=== PATIENT | female | born 1995 | race American Indian/Alaskan Native ===

== ENCOUNTER 2017-04-12 07:53 | Emergency (ER) | payer SELFPAY ==
[2017-04-12 08:28] LABS: Basophils % (Auto) 0.5 % (0.0-1.8); Eosinophils % (Auto) 1.8 % (0.0-4.3); Hematocrit 33.1 % (30.3-42.9); Hemoglobin 10.6 gm/dl (10.1-14.3); Mean Corpuscular HGB Conc 32 % (30-34); Mean Corpuscular Volume 74 fl (79-97); Platelet Count 331 K/mm3 (140-440); Red Blood Count 4.45 M/mm3 (3.65-5.03); Red Cell Distribution Width 16.9 % (13.2-15.2); White Blood Count 7.5 K/mm3 (4.5-11.0)
[2017-04-12 08:34] LABS: Mean Corpuscular Hemoglobin 24 pg (28-32)
[2017-04-12 08:45] LABS: Anion Gap 18 mmol/L; BUN/Creatinine Ratio 17; Blood Urea Nitrogen 10 mg/dL (7-17); Calcium 9.1 mg/dL (8.4-10.2); Carbon Dioxide 23 mmol/L (22-30); Chloride 101.9 mmol/L (98-107); Glucose 108 mg/dL (65-100); Potassium 4.4 mmol/L (3.6-5.0); Sodium 138 mmol/L (137-145)
[2017-04-12] MEDS ORDERED: ZOFRAN IV ONE (14:03)
[2017-04-12] MEDS ORDERED: ASPIRIN PO ONE (14:03)
[2017-04-12] MEDS ORDERED: MORPHINE IV ONE (14:03)
[2017-04-12] MEDS ORDERED: NITRO-BID 2% TP ONE (14:03)
--- NOTE | 2017-04-12 14:06 | Emergency Department Report ---
HPI - General Chief Complaint: Chest Pain Time Seen by Provider: 04/12/17 13:43 - HPI HPI: Stubbs 21 The patient is a 21-year-old female presented with a chief complaint of chest pain. Patient states for approximately 1 week she has had intermittent substernal chest pain described as sharp and pressure-like in nature. The patient states when the pain comes on and lasts all day. Patient does admit to shortness of breath but denies nausea/vomiting with her pain. Patient is to occasional cough that is nonproductive. Patient does admit a pleurisy but denies any recent flights or long car trips. Patient denies any history of fever. Patient denies any other pain outside of her chest pain Location: Chest Duration: Intermittent one week Quality: Pressure/sharp Severity: 02/14 Modifying factors: [see above] Context: [see above] Mode of transportation: Unknown ED Past Medical Hx - Past Medical History Previous Medical History?: Yes Additional medical history: Bronchitis - Surgical History Past Surgical History?: No - Family History Family history: no significant - Social History Smoking Status: Current Some Day Smoker Substance Use Type: None (denies illicit drug use) - Medications Home Medications: Home Medications Medication Instructions Recorded Confirmed Last Taken Type No Known Home Medications [No 08/08/15 04/12/17 Unknown History Reported Home Medications] ED Review of Systems ROS: Stated complaint: CHEST PAIN Other details as noted in HPI Eyes: denies: eye pain ENT: denies: throat pain Respiratory: cough, shortness of breath Cardiovascular: chest pain Gastrointestinal: denies: abdominal pain Genitourinary: denies: dysuria Musculoskeletal: denies: back pain Neurological: denies: headache Physical Exam - Physical Exam Vital Signs: Vital Signs 04/12/17 08:08 Temperature 98.2 F Pulse Rate 92 H Respiratory 18 Rate Blood Pressure 133/76 O2 Sat by Pulse 99 Oximetry Physical Exam: GENERAL: The patient is well-developed well-nourished female sitting on stretcher not appearing to be in acute distress. [] HEENT: Normocephalic. Atraumatic. Extraocular motions are intact. Patient has moist mucous membranes. NECK: Supple. Trachea midline CHEST/LUNGS: Clear to auscultation. There is no respiratory distress noted. HEART/CARDIOVASCULAR: Regular. There is no tachycardia. There is no gallop rub or murmur. ABDOMEN: Abdomen is soft, nontender. Patient has normal bowel sounds. There is no abdominal distention. SKIN: There is no rash. There is no diaphoresis. NEURO: The patient is awake, alert, and oriented. The patient is cooperative. The patient has normal speech MUSCULOSKELETAL: There is no evidence of acute injury. ED Course Vital Signs 04/12/17 08:08 Temperature 98.2 F Pulse Rate 92 H Respiratory 18 Rate Blood Pressure 133/76 O2 Sat by Pulse 99 Oximetry ED Medical Decision Making - Lab Data Result diagrams: 04/12/17 08:13 04/12/17 08:13 Laboratory Tests 04/12/17 04/12/17 04/12/17 08:13 08:13 11:18 WBC 7.5 RBC 4.45 Hgb 10.6 Hct 33.1 MCV 74 L MCH 24 L MCHC 32 RDW 16.9 H Plt Count 331 Lymph % (Auto) 21.2 Webster % (Auto) 5.8 Eos % (Auto) 1.8 Baso % (Auto) 0.5 Lymph # 1.6 Webster # 0.4 Eos # 0.1 Baso # 0.0 Seg Neutrophils % 70.7 H Seg Neutrophils # 5.3 Sodium 138 Potassium 4.4 Chloride 101.9 Carbon Dioxide 23 Anion Gap 18 BUN 10 Creatinine 0.6 L Estimated GFR > 60 BUN/Creatinine Ratio 17 Glucose 108 H Calcium 9.1 Troponin T < 0.010 < 0.010 HCG, Qual 04/12/17 04/12/17 14:05 14:08 WBC RBC Hgb Hct MCV MCH MCHC RDW Plt Count Lymph % (Auto) Webster % (Auto) Eos % (Auto) Baso % (Auto) Lymph # Webster # Eos # Baso # Seg Neutrophils % Seg Neutrophils # Sodium Potassium Chloride Carbon Dioxide Anion Gap BUN Creatinine Estimated GFR BUN/Creatinine Ratio Glucose Calcium Troponin T < 0.010 HCG, Qual Negative - EKG Data -: EKG Interpreted by Me EKG shows normal: sinus rhythm Rate: normal - EKG Data When compared to previous EKG there are: previous EKG unavailable Interpretation: nonspecific ST-T wave sammy (T-wave inversions in leads 2, V2, V3) , other (Q waves in leads 2, 3, aVF, V4, V5, V6. S1 Q3 T3. ) - Radiology Data Radiology results: report reviewed (CT chest), image reviewed (CT chest) FINAL REPORT PROCEDURE: CT ANGIO CHEST TECHNIQUE: Computerized tomographic angiography of the chest was performed after the IV injection of iodinated nonionic contrast including image processing. The image data was postprocessed using 2-dimensional multiplanar reformatted (MPR) and 3-dimensional (MIP and/or volume rendered) techniques. HISTORY: chest pain COMPARISON: No prior studies are available for comparison. FINDINGS: Lungs are clear. No pneumothorax or pleural effusion is seen. No mediastinal lymphadenopathy is seen. Heart and thoracic aorta are normal in size. There is no evidence of aortic dissection. No pulmonary embolus is seen. A rib fracture is not seen. IMPRESSION: No abnormalities are seen. Transcribed By: WW Dictated By: SHAE DORMAN JR, MD Electronically Authenticated By: SHAE DORMAN JR, MD Signed Date/Time: 04/12/171241 DD/ 41 TD/TT: 04/12/171241 - Differential Diagnosis PE, ACS, GERD, pericarditis Critical care attestation.: If time is entered above; I have spent that time in minutes in the direct care of this critically ill patient, excluding procedure time. ED Disposition Clinical Impression: Chest pain, Abnormal Q waves on electrocardiogram, T wave inversion in EKG Disposition: -09 OP ADMIT IP TO THIS HOSP Is pt being admited?: Yes Does the pt Need Aspirin: Yes Condition: Fair Instructions: Chest Pain (ED) Referrals: PRIMARY CARE, [Primary Care Provider] - 3-5 Days Time of Disposition: 16:52 (hospitalist notified (Dr Hamilton))
--- NOTE | 2017-04-12 16:45 | Cat Scan Report ---
FINAL REPORT PROCEDURE: CT ANGIO CHEST TECHNIQUE: Computerized tomographic angiography of the chest was performed after the IV injection of iodinated nonionic contrast including image processing. The image data was postprocessed using 2-dimensional multiplanar reformatted (MPR) and 3-dimensional (MIP and/or volume rendered) techniques. HISTORY: chest pain COMPARISON: No prior studies are available for comparison. FINDINGS: Lungs are clear. No pneumothorax or pleural effusion is seen. No mediastinal lymphadenopathy is seen. Heart and thoracic aorta are normal in size. There is no evidence of aortic dissection. No pulmonary embolus is seen. A rib fracture is not seen. IMPRESSION: No abnormalities are seen.
--- NOTE | 2017-04-12 19:17 | History and Physical Report ---
History of Present Illness Chief complaint: chest pain History of present illness: 21 YO Female with bronchitis presents to ED for evaluation of chest pain. Patient states for approximately 1 week she has had intermittent substernal chest pain described as sharp and pressure-like in nature. The patient states when the pain comes on and lasts all day. Patient does admit to shortness of breath but denies nausea/vomiting with her pain. Patient is to occasional cough that is nonproductive. Patient does admit a pleurisy but denies any recent flights or long car trips. Patient denies any history of fever. Patient denies any other pain outside of her chest pain. Pt seen and evaluated in ED. Pt medically optimized and back to usual state of health. Cardiac workup negative, CT angio chest negative. Pt discharged home. Past History Past Medical History: other (bronchitis.) Past Surgical History: No surgical history, Other (reviewed) Social history: single. denies: smoking, alcohol abuse Family history: hypertension Medications and Allergies Allergies Allergy/AdvReac Type Severity Reaction Status Date / Time No Known Allergies Allergy Unverified 08/08/15 01:01 Home Medications Medication Instructions Recorded Confirmed Last Taken Type ALBUTEROL NEB's [Proventil 0.083% 2.5 mg IH TID PRN #1 box 04/12/17 Unknown Rx NEBS] Ipratropium [Atrovent NEB] 0.5 mg IH Q8HRT #1 box 04/12/17 Unknown Rx Nebulizer and Compressor [[place] 1 each MC BID #1 each 04/12/17 Unknown Rx Choice Nebulizer] Pantoprazole [Protonix] 40 mg PO QDAY #30 tablet 04/12/17 Unknown Rx Review of Systems Constitutional: no weight loss, no weight gain, no fever, no chills Ears, nose, mouth and throat: no ear pain, no ear discharge, no tinnitis, no decreased hearing Breasts: no change in shape, no swelling, no mass Cardiovascular: chest pain, no orthopnea, no palpitations, no rapid/irregular heart beat, no edema, no syncope Gastrointestinal: no abdominal pain, no nausea, no vomiting, no diarrhea, no constipation Genitourinary Female: no pelvic pain, no flank pain, no menorrhagia, no dysuria Rectal: no pain, no incontinence, no bleeding Musculoskeletal: no neck stiffness, no neck pain, no shooting arm pain, no arm numbness/tingling, no low back pain Integumentary: no rash, no pruritis, no redness, no sores Neurological: no transient paralysis, no paralysis, no weakness, no parathesias , no numbness, no tingling, no seizures Psychiatric: no memory loss, no change in sleep habits, no sleep disturbances, no insomnia, no hypersomnia, no change in appetite Endocrine: no cold intolerance, no heat intolerance, no polyphagia, no excessive thirst, no polydipsia Hematologic/Lymphatic: no easy bruising, no easy bleeding Allergic/Immunologic: no urticaria, no allergic rhinitis, no wheezing Exam - Constitutional Vitals: Temp Pulse Resp BP Pulse Ox 98.2 F 89 18 112/81 100 04/12/17 08:08 04/12/17 15:14 04/12/17 15:14 04/12/17 15:14 04/12/17 14:45 General appearance: Present: obese - EENT Eyes: Present: PERRL ENT: hearing intact, clear oral mucosa - Neck Neck: Present: supple, normal ROM - Respiratory Respiratory effort: normal Respiratory: bilateral: CTA - Cardiovascular Heart Sounds: Present: S1 & S2. Absent: rub, click - Extremities Extremities: pulses symmetrical, No edema Peripheral Pulses: within normal limits - Abdominal General gastrointestinal: Present: soft, non-tender, non-distended, normal bowel sounds Female genitourinary: Present: normal - Integumentary Integumentary: Present: clear, warm, dry - Musculoskeletal Musculoskeletal: gait normal, strength equal bilaterally - Psychiatric Psychiatric: appropriate mood/affect, intact judgment & insight - Neurologic Neurologic: CNII-XII intact, moves all extremities Results - Labs CBC & Chem 7: 04/12/17 08:13 04/12/17 08:13 Labs: Abnormal lab results 04/12/17 04/12/17 04/12/17 Range/Units 08:13 08:13 17:38 MCV 74 L (79-97) fl MCH 24 L (28-32) pg RDW 16.9 H (13.2-15.2) % Seg Neutrophils % 70.7 H (40.0-70.0) % D-Dimer 1070.53 H (0-234) ng/mlDDU Creatinine 0.6 L (0.7-1.2) mg/dL Glucose 108 H (65-100) mg/dL Assessment and Plan - Patient Problems (1) Atypical chest pain Status: Acute Plan to address problem: Cardiac enzymes, ekg, telemetry, unremarkable for acute ischamia, D//c home f/u pcp 1wk. (2) GERD (gastroesophageal reflux disease) Status: Acute Plan to address problem: PPI therapy
[2017-04-12 19:43] VITALS: BP 112/86
[2017-04-12 19:45] LABS: Urine Drugs of Abuse Note Disclamer
== END 2017-04-12 20:45 | disposition admitted as inpatient to this hospital (09) ==
LOC: ED 07:53
DX: R07.89 Other chest pain (principal); R94.31 Abnormal electrocardiogram [ECG] [EKG]; F17.200 Nicotine dependence, unspecified, uncomplicated
CPT/HCPCS: 36415; 71275; 80048; 80307; 83735; 84484; 84703; 85025; 85379; 93005; 93010; 96374; 96375; 99284; J2270; J2405; Q9967

== ENCOUNTER 2017-10-04 16:55 | Emergency (ER) | payer SELFPAY ==
[2017-10-04 17:12] VITALS: BP 155/76
[2017-10-04 18:05] LABS: Color,Urine Yellow (Yellow)
[2017-10-04 18:06] LABS: Bilirubin,Urine NEG (Negative); Blood,Urine NEG (Negative); HCG Qualitative,Urine Negative (Negative); Mucus,Urine 3+ /HPF; Protein,Urine <15 mg/dL mg/dL (Negative); Urobilinogen,Urine < 2.0 mg/dL (<2.0)
[2017-10-04] MEDS ORDERED: NORCO 5/325 PO ONE (22:20)
--- NOTE | 2017-10-04 22:28 | Emergency Department Report ---
HPI - General Chief Complaint: Back Pain/Injury Time Seen by Provider: 10/04/17 22:06 - HPI HPI: 22-year-old female presents to the emergency department with a one-week history of lower midsternal chest pain and low back pain. Both of these areas started atraumatically. The chest pain is a soreness that she says worsens with palpation and certain movements of the upper torso. Regarding the low back pain, she denies any numbness, paresthesias, problems with bowel or bladder, vaginal discharge or bleeding, fever. She tried some anti- inflammatories such as ibuprofen for her symptoms without any relief. She has not had a primary care physician. She has a past medical history of bronchitis. She is an occasional tobacco smoker denies any illicit drug use or alcohol abuse. No recent travel or sick contacts at home. ED Past Medical Hx - Past Medical History Hx Asthma: Yes Additional medical history: Bronchitis - Surgical History Past Surgical History?: No - Social History Smoking Status: Current Every Day Smoker Substance Use Type: None - Medications Home Medications: Home Medications Medication Instructions Recorded Confirmed Last Taken Type ALBUTEROL NEB's [Proventil 0.083% 2.5 mg IH TID PRN #1 box 04/12/17 Unknown Rx NEBS] Ipratropium [Atrovent NEB] 0.5 mg IH Q8HRT #1 box 04/12/17 Unknown Rx Nebulizer and Compressor [[place] 1 each MC BID #1 each 04/12/17 Unknown Rx Choice Nebulizer] Pantoprazole [Protonix] 40 mg PO QDAY #30 tablet 04/12/17 Unknown Rx HYDROcodone/ACETAMINOPHEN [Ariton 1 each PO Q8H PRN #8 tablet 10/04/17 Unknown Rx 5-325 Tablet] ED Review of Systems ROS: Stated complaint: SOB, LOWERBACK PAIN Other details as noted in HPI Comment: All other systems reviewed and negative Constitutional: denies: chills, fever Eyes: denies: eye pain, eye discharge, vision change ENT: denies: ear pain, throat pain Respiratory: denies: cough, shortness of breath, wheezing Cardiovascular: chest pain. denies: palpitations Gastrointestinal: denies: abdominal pain, nausea, diarrhea Genitourinary: denies: urgency, dysuria, discharge Musculoskeletal: back pain. denies: arthralgia Skin: denies: rash, lesions Neurological: denies: headache, weakness, paresthesias Physical Exam - Physical Exam Vital Signs: Vital Signs 10/04/17 17:08 Temperature 97.9 F Pulse Rate 103 H Respiratory 16 Rate Blood Pressure 155/76 O2 Sat by Pulse 100 Oximetry Physical Exam: GENERAL: The patient is well-developed well-nourished. HENT: Normocephalic. Atraumatic. Patient has moist mucous membranes. EYES: Extraocular motions are intact. NECK: Supple. Trachea is midline. CHEST/LUNGS: Clear to auscultation. There is no respiratory distress noted. There is some reproducible tenderness to palpation to the chest wall. HEART/CARDIOVASCULAR: Regular. There is no tachycardia. There is no murmur. ABDOMEN: Abdomen is soft, nontender. Patient has normal bowel sounds. Morbidly obese habitus. SKIN: Skin is warm and dry. NEURO: The patient is awake, alert, and oriented. The patient is cooperative. The patient has no focal neurologic deficits. The patient has normal speech. MUSCULOSKELETAL: There is no tenderness or deformity. There is no limitation range of motion. There is no evidence of acute injury. BACK: There is no thoracic tenderness to palpation. There is both lower midline and bilateral paraspinal tenderness palpation but no step-off or deformity. ED Course Vital Signs 10/04/17 17:08 Temperature 97.9 F Pulse Rate 103 H Respiratory 16 Rate Blood Pressure 155/76 O2 Sat by Pulse 100 Oximetry - Pulse Oximetry Interpretation Digit-Finger Initial Pulse Oximetry Readin O2 Sat by Pulse Oximetry: 100 Actions Taken: none Additional Comments: normal ED Medical Decision Making - EKG Data -: EKG Interpreted by Me EKG shows normal: sinus rhythm, axis, intervals, QRS complexes, ST-T waves Rate: normal - EKG Data When compared to previous EKG there are: previous EKG unavailable Interpretation: normal EKG - Radiology Data Radiology results: image reviewed interpreted by me: Chest x-ray does not show any acute process. There are no pleural effusions, obvious pneumonia and there is no pneumothorax. - Medical Decision Making Patient presents with a one-week history of some lower midsternal chest pain and low back pain. She does not have any focal, motor or sensory deficits, any problems with bowel or bladder, numbness or paresthesias or any neurological deficits. She appears low suspicion for any of the emergent back condition such as cauda equina, cord compression syndrome or epidural abscess. Regarding the chest pain, the pain is reproducible to palpation and with certain movements of her body. EKG does not show any signs of ST elevation [place], dysrhythmia or ischemia. Chest x-ray does not show any acute process. Vital signs stable throughout her ED course including being afebrile. She appears safe for discharge home at this time. She is low on the Heart score criteria and low on the JAN score. She was given referrals for primary care and encouraged to return to the emergency Department with any worsening of her symptoms or any acute distress. - Differential Diagnosis costochondritis, muscle spasm, lumbar strain, [place] Critical Care Time: No Critical care attestation.: If time is entered above; I have spent that time in minutes in the direct care of this critically ill patient, excluding procedure time. ED Disposition Clinical Impression: Atypical chest pain, Costochondritis Low back pain Qualifiers: Chronicity: unspecified Back pain laterality: bilateral Sciatica presence: without sciatica Qualified Code(s): M54.5 - Low back pain Disposition: - TO HOME OR SELFCARE Is pt being admited?: No Condition: Stable Instructions: Chest Pain (ED), Costochondritis (ED), Back Pain (ED) Additional Instructions: Please follow up with a primary care physician in the next few days. Return to the emergency Department with any worsening of your symptoms or any acute distress. You have been prescribed a medication that is sedating and therefore should not be taken prior to driving, working, and responsible for children and in no way should be mixed with alcohol of any quantity. Prescriptions: HYDROcodone/ACETAMINOPHEN [Ariton 5-325 Tablet] 1 each PO Q8H PRN #8 tablet PRN Reason: Pain Referrals: JAVAN BROOKS MD [Staff Physician] - 3-5 Days [facility] [Outside] - 3-5 Days PRIMARY CAREMD [Primary Care Provider] - 3-5 Days Time of Disposition: 23:03
--- NOTE | 2017-10-09 14:15 | XRay Report ---
FINAL REPORT EXAM: XR CHEST ROUTINE 2V HISTORY: CP TECHNIQUE: Two view chest PA and lateral PRIORS: None. FINDINGS: Cardiac and mediastinal contours are unremarkable. No focal pulmonary infiltrate is identified. No pleural fluid collection seen. Pulmonary vasculature is unremarkable. IMPRESSION: Negative two-view chest
== END 2017-10-04 23:05 | disposition home or self-care (01) ==
LOC: ED 20:05
DX: M94.0 Chondrocostal junction syndrome [Tietze] (principal); M54.5 Low back pain; F17.200 Nicotine dependence, unspecified, uncomplicated
CPT/HCPCS: 71046; 81001; 81025; 93005; 93010; 99283

== ENCOUNTER 2017-12-20 06:22 | Emergency (ER) | payer OTHER ==
[2017-12-20 06:48] VITALS: BP 122/78
[2017-12-20] MEDS ORDERED: TYLENOL ONE (06:58)
[2017-12-20] MEDS ORDERED: ASPIRIN PO ONE (06:58)
[2017-12-20] MEDS ORDERED: TYLENOL PO ONE (06:59)
[2017-12-20 07:36] LABS: Basophils % (Auto) 0.5 % (0.0-1.8); Eosinophils # (Auto) 0.1 K/mm3 (0.0-0.4); Eosinophils % (Auto) 1.2 % (0.0-4.3); Hematocrit 35.1 % (30.3-42.9); Hemoglobin 11.1 gm/dl (10.1-14.3); Lymphocytes # (Auto) 1.8 K/mm3 (1.2-5.4); Mean Corpuscular HGB Conc 32 % (30-34); Mean Corpuscular Volume 76 fl (79-97); Monocytes # (Auto) 0.4 K/mm3 (0.0-0.8); Platelet Count 345 K/mm3 (140-440); Red Cell Distribution Width 17.7 % (13.2-15.2)
[2017-12-20 07:51] LABS: BUN/Creatinine Ratio 18; Blood Urea Nitrogen 11 mg/dL (7-17); Calcium 10.1 mg/dL (8.4-10.2); Hemolysis Index 2
[2017-12-20 07:58] LABS: Mean Corpuscular Hemoglobin 24 pg (28-32)
[2017-12-20] MEDS ORDERED: TORADOL IV ONE (08:38)
--- NOTE | 2017-12-20 08:42 | Emergency Department Report ---
ED Chest Pain HPI - General Chief Complaint: Chest Pain Stated Complaint: CHEST AND BACK PAIN SOB Time Seen by Provider: 12/20/17 08:30 Source: patient, EMS, old records reviewed (patient had elevated d-dimer during ED visit April [address] angiogram chest) Mode of arrival: Ambulatory Limitations: No Limitations - History of Present Illness Initial Comments: 22-year-old female with a past medical history asthma and morbid obesity presents to the Hospital complaining of chest pain started at 4:30 AM. Patient having a dry cough with posttussive emesis episodes. She complains of shortness of breath at this time to her asthma. Patient's pain is in the center of her chest described as a constant sharp pain. Pain is moderate in intensity, Pain is worse with palpation, movement, and deep inspiration. Patient also complaining of lower back pain that is worse with palpation and movement. Patient denies any known heavy lifting but [place] She denies history of PE/DVT, recent travel, control pill use, or calf tenderness/edema. She denies abdominal pain, fever, or diarrhea. - Related Data Previous Rx's Medication Instructions Recorded Last Taken Type Nebulizer and Compressor [[place] 1 each MC BID #1 each 04/12/17 Unknown Rx Choice Nebulizer] Pantoprazole [Protonix] 40 mg PO QDAY #30 tablet 04/12/17 Unknown Rx HYDROcodone/ACETAMINOPHEN [[place] 1 each PO Q8H PRN #8 tablet 10/04/17 Unknown Rx 5-325 Tablet] ALBUTEROL Inhaler [ProAir HFA 2 puff IH QID PRN #1 inhalation 12/20/17 Unknown Rx Inhaler] ALBUTEROL NEB's [Proventil 0.083% 2.5 mg IH TID PRN #1 box 12/20/17 Unknown Rx NEBS] Benzonatate [Tessalon Perle] 100 mg PO TID PRN #20 capsule 12/20/17 Unknown Rx Ibuprofen [Motrin] 800 mg PO Q8HR PRN #30 tablet 12/20/17 Unknown Rx Ipratropium [Atrovent NEB] 0.5 mg IH Q8HRT #1 box 12/20/17 Unknown Rx Ondansetron [Zofran Odt] 4 mg PO Q8HR PRN #20 tab.rapdis 12/20/17 Unknown Rx traMADol [Ultram 50 MG tab] 50 mg PO Q6HR PRN #20 tablet 12/20/17 Unknown Rx Allergies Allergy/AdvReac Type Severity Reaction Status Date / Time No Known Allergies Allergy Unverified 08/08/15 01:01 Heart Score - HEART Score History: Slightly suspicious EKG: Normal Age: < 45 Risk factors: 1-2 risk factors Troponin: < normal limit HEART Score: 1 ED Review of Systems ROS: Stated complaint: CHEST AND BACK PAIN SOB Other details as noted in HPI Comment: All other systems reviewed and negative ED Past Medical Hx - Past Medical History Previous Medical History?: Yes Hx Asthma: Yes Additional medical history: Bronchitis - Surgical History Past Surgical History?: No - Social History Smoking Status: Current Every Day Smoker Substance Use Type: None - Medications Home Medications: Home Medications Medication Instructions Recorded Confirmed Last Taken Type Nebulizer and Compressor [[place] 1 each MC BID #1 each 04/12/17 Unknown Rx Choice Nebulizer] Pantoprazole [Protonix] 40 mg PO QDAY #30 tablet 04/12/17 Unknown Rx HYDROcodone/ACETAMINOPHEN [[place] 1 each PO Q8H PRN #8 tablet 10/04/17 Unknown Rx 5-325 Tablet] ALBUTEROL Inhaler [ProAir HFA 2 puff IH QID PRN #1 inhalation 12/20/17 Unknown Rx Inhaler] ALBUTEROL NEB's [Proventil 0.083% 2.5 mg IH TID PRN #1 box 12/20/17 Unknown Rx NEBS] Benzonatate [Tessalon Perle] 100 mg PO TID PRN #20 capsule 12/20/17 Unknown Rx Ibuprofen [Motrin] 800 mg PO Q8HR PRN #30 tablet 12/20/17 Unknown Rx Ipratropium [Atrovent NEB] 0.5 mg IH Q8HRT #1 box 12/20/17 Unknown Rx Ondansetron [Zofran Odt] 4 mg PO Q8HR PRN #20 tab.rapdis 12/20/17 Unknown Rx traMADol [Ultram 50 MG tab] 50 mg PO Q6HR PRN #20 tablet 12/20/17 Unknown Rx ED Physical Exam - General Limitations: No Limitations - Other Other exam information: General: No limitations, patient is alert in no acute distress Head exam: Atraumatic, normocephalic Eyes exam: Normal appearance ENT: Moist mucous membrane, normal oropharynx Neck exam: Normal inspection, full range of motion, no meningismus nontender Respiratory exam: Clear to auscultation bilateral, no wheezes, rales, crackles Cardiovascular: Normal rate and rhythm, reproducible sternal and bilateral lower rib tenderness to palpation Abdomen: Soft, nondistended, and nontender, with normal bowel sounds, no rebound, or guarding Extremity: Full range of motion normal inspection no deformity, no calf tenderness or edema Back: Normal Inspection, full range of motion, no tenderness Neurologic: Alert, oriented x3, cranial nerves intact, no motor or sensory deficit Psychiatric: normal affect, normal mood Skin: Warm, dry, intact ED Course Vital Signs 12/20/17 12/20/17 12/20/17 06:38 06:39 08:56 Temperature 97.6 F Pulse Rate 71 65 58 L Respiratory 18 Rate Blood Pressure 122/78 O2 Sat by Pulse 99 98 100 Oximetry JAN score - Jan Score Age > 65: (0) No Aspirin use within the Past 7 Days: (0) No 3 or more CAD Risk Factors: (0) No 2 or more Angina events in past 24 hrs: (0) No Known CAD with more than 50% Stenosis: (0) No Elevated Cardiac Markers: (0) No ST Deviation Greater than 0.5mm: (0) No JAN Score: 0 ED Medical Decision Making - Lab Data Result diagrams: 12/20/17 07:13 12/20/17 07:13 Lab Results 12/20/17 12/20/17 12/20/17 Range/Units 07:13 07:13 08:40 WBC 7.7 (4.5-11.0) K/mm3 RBC 4.60 (3.65-5.03) M/mm3 Hgb 11.1 (10.1-14.3) gm/dl Hct 35.1 (30.3-42.9) % MCV 76 L (79-97) fl MCH 24 L (28-32) pg MCHC 32 (30-34) % RDW 17.7 H (13.2-15.2) % Plt Count 345 (140-440) K/mm3 Lymph % (Auto) 24.0 (13.4-35.0) % [place] % (Auto) 5.0 (0.0-7.3) % Eos % (Auto) 1.2 (0.0-4.3) % Baso % (Auto) 0.5 (0.0-1.8) % Lymph # 1.8 (1.2-5.4) K/mm3 [place] # 0.4 (0.0-0.8) K/mm3 Eos # 0.1 (0.0-0.4) K/mm3 Baso # 0.0 (0.0-0.1) K/mm3 Seg Neutrophils % 69.3 (40.0-70.0) % Seg Neutrophils # 5.3 (1.8-7.7) K/mm3 D-Dimer 234.83 H (0-234) ng/mlDDU Sodium 139 (137-145) mmol/L Potassium 4.2 (3.6-5.0) mmol/L Chloride 103.4 (98-107) mmol/L Carbon Dioxide 24 (22-30) mmol/L Anion Gap 16 mmol/L BUN 11 (7-17) mg/dL Creatinine 0.6 L (0.7-1.2) mg/dL Estimated GFR > 60 ml/min BUN/Creatinine Ratio 18 % Glucose 141 H (65-100) mg/dL Calcium 10.1 (8.4-10.2) mg/dL Troponin T < 0.010 (0.00-0.029) ng/mL - EKG Data -: EKG Interpreted by Ia EKG shows normal: sinus rhythm, axis (qrs 43), QRS complexes (qrsd 102), ST-T waves (ant t inv) Rate: normal - EKG Data When compared to previous EKG there are: other 12/20/17 08:41 Patient's EKG performed 10/04/2017. Has upright anterior T waves but on EKG from 04/12/2017 patient has inverted anterior T waves with similar appearing EKG compared to today. 12/20/17 08:42 - Radiology Data Radiology results: report reviewed cxr: naf (as per radiology) - Medical Decision Making D-dimer less than 250 without any DVT risk factors or symptoms. Patient presented Toradol for pain, Zofran for nausea, and Tessalon Perles for cough Lungs clear to auscultation without tachypnea or hypoxia Patient symptoms suggestive of costochondritis and muscular skeletal back pain Patient will be treated symptomatically with outpatient follow-up - Differential Diagnosis costochondritis, atypical chest, PE, pneumonia, bronchitis Critical Care Time: No Critical care attestation.: If time is entered above; I have spent that time in minutes in the direct care of this critically ill patient, excluding procedure time. ED Disposition Clinical Impression: Costochondritis, acute, Post-tussive emesis, Obesity, Low back strain, Asthma Disposition: TO HOME OR SELFCARE Is pt being admited?: No Does the pt Need Aspirin: No Condition: Stable Instructions: Costochondritis (ED), Low Back Strain (ED), Asthma (ED) Additional Instructions: Take the medication as prescribed. Return if symptoms worsen as indicated by your discharge instructions Prescriptions: ALBUTEROL Inhaler [ProAir HFA Inhaler] 2 puff IH QID PRN #1 inhalation PRN Reason: Shortness Of Breath ALBUTEROL NEB's [Proventil 0.083% NEBS] 2.5 mg IH TID PRN #1 box PRN Reason: Wheezing Benzonatate [Tessalon Perle] 100 mg PO TID PRN #20 capsule PRN Reason: Cough Ibuprofen [Motrin] 800 mg PO Q8HR PRN #30 tablet PRN Reason: Pain, Moderate (4-6) Ipratropium [Atrovent NEB] 0.5 mg IH Q8HRT #1 box Ondansetron [Zofran Odt] 4 mg PO Q8HR PRN #20 tab.rapdis PRN Reason: Nausea And Vomiting traMADol [Ultram 50 MG tab] 50 mg PO Q6HR PRN #20 tablet PRN Reason: Pain Referrals: PRIMARY CARE,MD [Primary Care Provider] - 3-5 Days [facility] [Provider Group] - 3-5 Days Time of Disposition: 09:43
[2017-12-20] MEDS ORDERED: TESSALON PERLES PO ONE (08:43)
[2017-12-20] MEDS ORDERED: ZOFRAN IV ONE (08:43)
--- NOTE | 2017-12-20 08:58 | XRay Report ---
CHEST 2 VIEWS INDICATION: Shortness of breath. COMPARISON: 10/04/2017. FINDINGS: PA and lateral chest radiographs demonstrate stable cardiomediastinal silhouette/top normal heart size. Clear lungs. Intact bones. CONCLUSION: No acute disease, stable. Thank you for the opportunity to participate in this patient's care.
== END 2017-12-20 09:55 | disposition home or self-care (01) ==
LOC: ED 06:22
DX: S39.012A Strain of muscle, fascia and tendon of lower back, initial encounter (principal); M94.0 Chondrocostal junction syndrome [Tietze]; R11.10 Vomiting, unspecified; E66.9 Obesity, unspecified; J45.909 Unspecified asthma, uncomplicated; F17.200 Nicotine dependence, unspecified, uncomplicated; X58.XXXA Exposure to other specified factors, initial encounter; Y93.89 Activity, other specified; Y92.89 Other specified places as the place of occurrence of the external cause; Y99.8 Other external cause status
CPT/HCPCS: 36415; 71046; 80048; 84484; 84703; 85025; 85379; 93005; 93010; 96374; 96375; 99285; J1885; J2405

== ENCOUNTER 2018-07-26 11:41 | Emergency (ER) | payer SELFPAY ==
--- NOTE | 2018-07-26 12:17 | Emergency Department Report ---
Blank Doc - Documentation Documentation: This is a 23-year-old female that presents with epigastric pain with some naus ea/vomiting. Stated had some blood in vomit. This initial assessment/diagnostic orders/clinical plan/treatment(s) is/are subject to change based on patient's health status, clinical progression and re- assessment by fellow clinical providers in the ED. Further treatment and workup at subsequent clinical providers discretion. Patient/guardians urged not to elope from the ED as their condition may be serious if not clinically assessed and managed. Initial orders include: 1- Patient sent to [facility] for further evaluation and treatment 2- labs 3- UA
[2018-07-26 12:19] VITALS: BP 136/76
[2018-07-26 12:36] LABS: Basophils % (Auto) 0.6 % (0.0-1.8); Eosinophils # (Auto) 0.1 K/mm3 (0.0-0.4); Eosinophils % (Auto) 1.2 % (0.0-4.3); Hematocrit 35.7 % (30.3-42.9); Hemoglobin 11.6 gm/dl (10.1-14.3); Lymphocytes # (Auto) 2.1 K/mm3 (1.2-5.4); Lymphocytes % (Auto) 27.9 % (13.4-35.0); Mean Corpuscular HGB Conc 33 % (30-34); Mean Corpuscular Volume 78 fl (79-97); Monocytes # (Auto) 0.4 K/mm3 (0.0-0.8); Monocytes % (Auto) 5.1 % (0.0-7.3); Platelet Count 315 K/mm3 (140-440); Red Blood Count 4.58 M/mm3 (3.65-5.03); Red Cell Distribution Width 16.6 % (13.2-15.2)
[2018-07-26 12:50] LABS: Alanine Aminotransferase 11 units/L (7-56); BUN/Creatinine Ratio 10; Blood Urea Nitrogen 7 mg/dL (7-17); Calcium 9.7 mg/dL (8.4-10.2); Hemolysis Index 47
[2018-07-26 12:58] LABS: Bilirubin,Urine NEG (Negative); Blood,Urine MOD (Negative); Color,Urine Yellow (Yellow); Mucus,Urine FEW /HPF; Protein,Urine <15 mg/dL mg/dL (Negative); Urobilinogen,Urine < 2.0 mg/dL (<2.0)
[2018-07-26 13:01] LABS: HCG Qualitative,Urine Negative (Negative)
[2018-07-26 13:05] LABS: Bilirubin,Direct < 0.2 mg/dL (0-0.2)
[2018-07-26] MEDS ORDERED: IBUPROFEN PO ONE (13:23)
[2018-07-26] MEDS ORDERED: BACTRIM DS PO ONE (13:23)
--- NOTE | 2018-07-26 13:23 | Emergency Department Report ---
ED Dysuria HPI - HPI Chief Complaint: Nausea/Vomiting/Diarrhea Stated Complaint: N/V Time Seen by Provider: 07/26/18 12:15 Duration: 2 Days Location of Discomfort: Suprapubic Severity: Mild Symptoms: Dysuria: Yes, Frequency: No, Suprapubic Pain: No, Flank Pain: No, Fever: No, Hematuria: No, Abdominal Pain: No, Previous UTI's: Yes Other History: 23 YO TO ER WITH N/V. LMP 2-6 AND PT CONCERNED SHES . PMH. ASTHMA. PSH. NONE. RX. NONE ED Review of Systems ROS: Stated complaint: VOMIT/CHEST PAIN Other details as noted in HPI Comment: All other systems reviewed and negative Constitutional: denies: see HPI Eyes: denies: eye pain ENT: denies: throat pain Respiratory: denies: cough Cardiovascular: denies: palpitations Endocrine: denies: excessive sweating Gastrointestinal: as per HPI, nausea, vomiting. denies: abdominal pain, diarrhea, constipation, hematemesis, melena Genitourinary: as per HPI, dysuria, abnormal menses. denies: frequency, hematuria, discharge Musculoskeletal: denies: back pain Skin: denies: rash, lesions Neurological: denies: headache, weakness Psychiatric: denies: anxiety, depression Hematological/Lymphatic: denies: easy bleeding ED Past Medical Hx - Past Medical History Hx Asthma: Yes Additional medical history: Bronchitis - Surgical History Past Surgical History?: No - Family History Family history: no significant - Social History Smoking Status: Current Every Day Smoker Substance Use Type: Alcohol - Medications Home Medications: Home Medications Medication Instructions Recorded Confirmed Last Taken Type Ondansetron [Zofran Odt] 4 mg PO Q8HR PRN #10 tab.rapdis 07/26/18 Unknown Rx Sulfamethoxazole/Trimethoprim 1 each PO BID #10 tablet 07/26/18 Unknown Rx [Bactrim DS TAB] Dysuria Exam - Exam General: Vital signs noted. No distress. Alert and acting appropriately. Exam: Yes Moist Mucous Membranes, No CVA Tenderness, No Abdominal Tenderness, No Rigidity or Guarding Labs: Lab Results 07/26/18 07/26/18 07/26/18 Range/Units 12:25 12:25 12:40 WBC 7.4 (4.5-11.0) K/mm3 RBC 4.58 (3.65-5.03) M/mm3 Hgb 11.6 (10.1-14.3) gm/dl Hct 35.7 (30.3-42.9) % MCV 78 L (79-97) fl MCH 25 L (28-32) pg MCHC 33 (30-34) % RDW 16.6 H (13.2-15.2) % Plt Count 315 (140-440) K/mm3 Lymph % (Auto) 27.9 (13.4-35.0) % [place] % (Auto) 5.1 (0.0-7.3) % Eos % (Auto) 1.2 (0.0-4.3) % Baso % (Auto) 0.6 (0.0-1.8) % Lymph # 2.1 (1.2-5.4) K/mm3 [place] # 0.4 (0.0-0.8) K/mm3 Eos # 0.1 (0.0-0.4) K/mm3 Baso # 0.0 (0.0-0.1) K/mm3 Seg Neutrophils % 65.2 (40.0-70.0) % Seg Neutrophils # 4.9 (1.8-7.7) K/mm3 Sodium 137 (137-145) mmol/L Potassium 4.1 (3.6-5.0) mmol/L Chloride 99.4 (98-107) mmol/L Carbon Dioxide 25 (22-30) mmol/L Anion Gap 17 mmol/L BUN 7 (7-17) mg/dL Creatinine 0.7 (0.7-1.2) mg/dL Estimated GFR > 60 ml/min BUN/Creatinine Ratio 10 % Glucose 90 (65-100) mg/dL Calcium 9.7 (8.4-10.2) mg/dL Total Bilirubin 0.30 (0.1-1.2) mg/dL Direct Bilirubin < 0.2 (0-0.2) mg/dL Indirect Bilirubin 0.1 mg/dL AST 14 (5-40) units/L ALT 11 (7-56) units/L Alkaline Phosphatase 61 (35-129) units/L Total Protein 8.5 H (6.3-8.2) g/dL Albumin 4.0 (3.9-5) g/dL Albumin/Globulin Ratio 0.9 % Lipase 16 (13-60) units/L Urine Color Yellow (Yellow) Urine Turbidity Slightly-cloudy (Clear) Urine pH 5.0 (5.0-7.0) Ur Specific Simpson 1.028 (1.003-1.030) Urine Protein <15 mg/dl (Negative) mg/dL Urine Glucose (UA) Neg (Negative) mg/dL Urine Ketones Neg (Negative) mg/dL Urine Blood Mod (Negative) Urine Nitrite Neg (Negative) Urine Bilirubin Neg (Negative) Urine Urobilinogen < 2.0 (<2.0) mg/dL Ur Leukocyte Esterase Lg (Negative) Urine WBC (Auto) 9.0 H (0.0-6.0) /HPF Urine RBC (Auto) 4.0 (0.0-6.0) /HPF U Epithel Cells (Auto) 13.0 (0-13.0) /HPF Urine Mucus Few /HPF Urine HCG, Qual Negative (Negative) ED Course Vital Signs 07/26/18 12:13 Temperature 98 F Pulse Rate 61 Respiratory 18 Rate Blood Pressure 136/76 O2 Sat by Pulse 100 Oximetry ED Medical Decision Making - Lab Data Result diagrams: 07/26/18 12:25 07/26/18 12:25 - Medical Decision Making Vital Signs 07/26/18 12:13 Temperature 98 F Pulse Rate 61 Respiratory 18 Rate Blood Pressure 136/76 O2 Sat by Pulse 100 Oximetry Labs 07/26/18 07/26/18 07/26/18 12:25 12:25 12:40 WBC 7.4 RBC 4.58 Hgb 11.6 Hct 35.7 MCV 78 L MCH 25 L MCHC 33 RDW 16.6 H Plt Count 315 Lymph % (Auto) 27.9 [place] % (Auto) 5.1 Eos % (Auto) 1.2 Baso % (Auto) 0.6 Lymph # 2.1 [place] # 0.4 Eos # 0.1 Baso # 0.0 Seg Neutrophils % 65.2 Seg Neutrophils # 4.9 Sodium 137 Potassium 4.1 Chloride 99.4 Carbon Dioxide 25 Anion Gap 17 BUN 7 Creatinine 0.7 Estimated GFR > 60 BUN/Creatinine Ratio 10 Glucose 90 Calcium 9.7 Total Bilirubin 0.30 Direct Bilirubin < 0.2 Indirect Bilirubin 0.1 AST 14 ALT 11 Alkaline Phosphatase 61 Total Protein 8.5 H Albumin 4.0 Albumin/Globulin Ratio 0.9 Lipase 16 Urine Color Yellow Urine Turbidity Slightly-cloudy Urine pH 5.0 Ur Specific Simpson 1.028 Urine Protein <15 mg/dl Urine Glucose (UA) Neg Urine Ketones Neg Urine Blood Mod Urine Nitrite Neg Urine Bilirubin Neg Urine Urobilinogen < 2.0 Ur Leukocyte Esterase Lg Urine WBC (Auto) 9.0 H Urine RBC (Auto) 4.0 U Epithel Cells (Auto) 13.0 Urine Mucus Few Urine HCG, Qual Negative PREG NEG URINE NOTED NOT CONCERNED FOR STI MEDICATED IN ER NO FEVER NO CVA TENDERNESS AMBULATORY TAKING PO DC HOME WITH DC POC AND FOLLOW UP Critical care attestation.: If time is entered above; I have spent that time in minutes in the direct care of this critically ill patient, excluding procedure time. ED Disposition Clinical Impression: UTI (urinary tract infection) Disposition: DC-01 TO HOME OR SELFCARE Is pt being admited?: No Does the pt Need Aspirin: No Condition: Stable Instructions: Urinary Tract Infection in Women (ED) Additional Instructions: MEDICATIONS ORDERED TODAY DIET TOLERATED ACTIVITY TOLERATED REST HYDRATE WELL WITH WATER MOTRIN OR TYLENOL FOR FEVER OR PAIN FOLLOW UP WITH PCP, REFERRAL BELOW. RETURN TO ER FOR WORSENING SYMPTOMS Prescriptions: Sulfamethoxazole/Trimethoprim [Bactrim DS TAB] 1 each PO BID #10 tablet Ondansetron [Zofran Odt] 4 mg PO Q8HR PRN #10 tab.rapdis PRN Reason: Vomiting Referrals: [facility] [Other] - 3-5 Days Forms: Work/School Release Form(ED) Time of Disposition: 13:30
== END 2018-07-26 13:40 | disposition home or self-care (01) ==
LOC: ED 11:41
DX: N39.0 Urinary tract infection, site not specified (principal); J45.909 Unspecified asthma, uncomplicated; F17.200 Nicotine dependence, unspecified, uncomplicated
CPT/HCPCS: 36415; 80048; 80076; 81001; 81025; 83690; 85025

== ENCOUNTER 2018-08-29 23:16 | Emergency (ER) | payer OTHER, SELFPAY ==
[2018-08-30 00:02] VITALS: BP 131/78
[2018-08-30 01:59] LABS: HCG Qualitative,Urine Negative (Negative)
[2018-08-30 02:08] LABS: Bacteria,Urine 1+ /HPF (Negative); Bilirubin,Urine NEG (Negative); Blood,Urine NEG (Negative); Color,Urine Yellow (Yellow); Mucus,Urine 3+ /HPF; Protein,Urine <15 mg/dL mg/dL (Negative)
--- NOTE | 2018-08-30 02:52 | Emergency Department Report ---
ED Female [facility] - General Chief complaint: Abdominal Pain Stated complaint: ABD PAIN HEADACHE Time Seen by Provider: 08/30/18 02:45 Source: patient Mode of arrival: Ambulatory Limitations: No Limitations - History of Present Illness Initial comments: 23-year-old -[place] female presents to the emergency room for dysuria that started today. MD Complaint: dysuria -: This morning - Related Data Previous Rx's Medication Instructions Recorded Last Taken Type Ondansetron [Zofran Odt] 4 mg PO Q8HR PRN #10 tab.rapdis 07/26/18 Unknown Rx Sulfamethoxazole/Trimethoprim 1 each PO BID #10 tablet 07/26/18 Unknown Rx [Bactrim DS TAB] Allergies Allergy/AdvReac Type Severity Reaction Status Date / Time No Known Allergies Allergy Unverified 08/08/15 01:01 ED Review of Systems ROS: Stated complaint: ABD PAIN HEADACHE Other details as noted in HPI ED Past Medical Hx - Past Medical History Previous Medical History?: Yes Hx Asthma: Yes Additional medical history: Bronchitis - Surgical History Past Surgical History?: No - Social History Smoking Status: Current Every Day Smoker Substance Use Type: None - Medications Home Medications: Home Medications Medication Instructions Recorded Confirmed Last Taken Type Ondansetron [Zofran Odt] 4 mg PO Q8HR PRN #10 tab.rapdis 07/26/18 Unknown Rx Sulfamethoxazole/Trimethoprim 1 each PO BID #10 tablet 07/26/18 Unknown Rx [Bactrim DS TAB] ED Physical Exam - General Limitations: No Limitations ED Course Vital Signs 08/29/18 08/30/18 23:57 00:01 Temperature 98.5 F 98.5 F Pulse Rate 65 68 Respiratory 16 16 Rate Blood Pressure 131/78 131/78 O2 Sat by Pulse 100 100 Oximetry Critical care attestation.: If time is entered above; I have spent that time in minutes in the direct care of this critically ill patient, excluding procedure time. ED Disposition Condition: Stable Instructions: Abdominal Pain (ED)
--- NOTE | 2018-08-30 04:23 | Emergency Department Report ---
ED Headache HPI - General Chief Complaint: Abdominal Pain Stated Complaint: ABD PAIN HEADACHE Time Seen by Provider: 08/30/18 02:45 - History of Present Illness Initial Comments: 19-year-old [place] female presents to the emergency room stating she's had a headache for 2 weeks. Patient reports that she's tried ibuprofen and Excedrin without any relief. Patient complains that the headache is sharp and achy and located in the frontal area temporal area. Patient does admit to photophobia. Last medication patient Was at 4 PM yesterday of Excedrin. Patient reports that the pain is worse with light and better with nothing. Patient denies any rhinorrhea no nasal congestion no sneezing no change of vision last exam was one year ago. Has a past medical history of asthma currently takes no medications has no known drug allergies. Timing/Duration: 1 week (2 weeks) Quality: achy, sharp Head Injury Location: frontal, temporal Modifying Factors: improves with: exposure to light Allergies/Adverse Reactions: Allergies No Known Allergies Allergy (Unverified 08/08/15 01:01) Home Medications: Ambulatory Orders Ondansetron [Zofran Odt] 4 mg PO Q8HR PRN #10 tab.rapdis 07/26/18 Sulfamethoxazole/Trimethoprim [Bactrim DS TAB] 1 each PO BID #10 tablet 07/26/18 ED Review of Systems ROS: Stated complaint: ABD PAIN HEADACHE Other details as noted in HPI Comment: All other systems reviewed and negative Neurological: headache ED Past Medical Hx - Past Medical History Previous Medical History?: Yes Hx Asthma: Yes Additional medical history: Bronchitis - Surgical History Past Surgical History?: No - Social History Smoking Status: Current Every Day Smoker Substance Use Type: None - Medications Home Medications: Home Medications Medication Instructions Recorded Confirmed Last Taken Type Ondansetron [Zofran Odt] 4 mg PO Q8HR PRN #10 tab.rapdis 07/26/18 Unknown Rx Sulfamethoxazole/Trimethoprim 1 each PO BID #10 tablet 07/26/18 Unknown Rx [Bactrim DS TAB] ED Physical Exam - General Limitations: No Limitations General appearance: alert, in no apparent distress - Head Head exam: Present: atraumatic, normocephalic - Eye Eye exam: Present: normal appearance - ENT ENT exam: Present: mucous membranes moist - Neck Neck exam: Present: normal inspection, full ROM, other (frontal tenderness no temporal tenderness). Absent: lymphadenopathy - Respiratory Respiratory exam: Present: normal lung sounds bilaterally. Absent: respiratory distress - Cardiovascular Cardiovascular Exam: Present: regular rate, normal rhythm. Absent: systolic murmur, diastolic murmur, rubs, gallop - GI/Abdominal GI/Abdominal exam: Present: soft, normal bowel sounds - Back Exam Back exam: Present: normal inspection - Neurological Exam Neurological exam: Present: alert, oriented X3 - Expanded Neurological Exam Expanded Patient oriented to: Present: person, place, time Cranial nerves: EOM's Intact: Normal, Gag Reflex: Normal, Tongue Deviation: Normal, Nystagmus: Normal, Facial Sensation: Normal, Facial Palsy with Forehead Movement: Normal, Facial Palsy without Forehead Movement: Normal Cerebellar function: Finger to Nose: Normal, Heel to Marquez: Normal, Romberg: Normal Upper motor neuron: Abhay Neglect: Normal, Pronator Drift: Normal, Sensory Extinction: Normal Sensory exam: Upper Extremity Light Touch: Normal, Upper Extremity Pin Prick: Normal, Upper Extremity Temperature: Normal, UE 2 Point Discrimination: Normal, Lower Extremity Light Touch: Normal, Lower Extremity Pin Prick: Normal Motor strength exam: RUE: 5, LUE: 5, RLE: 5, LLE: 5 Best Eye Response ([place]): (4) open spontaneously Best Motor Response (Mars): (6) obeys commands Best Verbal Response (Mars): (5) oriented Mars Total: 15 - Psychiatric Psychiatric exam: Present: normal affect, normal mood - Skin Skin exam: Present: warm, dry, intact, normal color. Absent: rash ED Course Vital Signs 08/29/18 08/30/18 23:57 00:01 Temperature 98.5 F 98.5 F Pulse Rate 65 68 Respiratory 16 16 Rate Blood Pressure 131/78 131/78 O2 Sat by Pulse 100 100 Oximetry - Reevaluation(s) Reevaluation #1: 08/30/18 07:03 Patient reports that her neck has improved ED Medical Decision Making - Radiology Data Radiology results: report reviewed - Medical Decision Making Patient has been seen by this provider's track. Patient's given ibuprofen and Benadryl. Her headache. Patient has a normal neurological exam. Critical care attestation.: If time is entered above; I have spent that time in minutes in the direct care of this critically ill patient, excluding procedure time. ED Disposition Clinical Impression: Headache Qualifiers: Headache type: unspecified Headache chronicity pattern: acute headache Intractability: intractable Qualified Code(s): R51 - Headache Disposition: DC- TO HOME OR SELFCARE Is pt being admited?: No Does the pt Need Aspirin: No Condition: Stable Instructions: Acute Headache (ED) Additional Instructions: Take Tylenol and or ibuprofen for pain management. Increase her fluid intake of age he as tolerated. Follow-up with a primary care provider I have listed one below for your convenience. Referrals: ABILIO CARNES MD [Primary Care Provider] - 3-5 Days Forms: Work/School Release Form(ED)
[2018-08-30] MEDS ORDERED: IBUPROFEN PO ONE (04:24)
[2018-08-30] MEDS ORDERED: BENADRYL PO ONE (04:24)
== END 2018-08-30 07:10 | disposition home or self-care (01) ==
LOC: ED 23:16
DX: R51 Headache (principal); J45.909 Unspecified asthma, uncomplicated; F17.200 Nicotine dependence, unspecified, uncomplicated
CPT/HCPCS: 81001; 81025

== ENCOUNTER 2018-11-13 09:27 | Emergency (ER) | payer SELFPAY ==
[2018-11-13 10:13] LABS: Basophils # (Auto) 0.1 K/mm3 (0.0-0.1); Basophils % (Auto) 0.7 % (0.0-1.8); Eosinophils # (Auto) 0.2 K/mm3 (0.0-0.4); Eosinophils % (Auto) 2.4 % (0.0-4.3); Hematocrit 36.1 % (30.3-42.9); Hemoglobin 11.6 gm/dl (10.1-14.3); Lymphocytes % (Auto) 23.6 % (13.4-35.0); Mean Corpuscular HGB Conc 32 % (30-34); Mean Corpuscular Volume 80 fl (79-97); Monocytes # (Auto) 0.5 K/mm3 (0.0-0.8); Monocytes % (Auto) 5.6 % (0.0-7.3); Platelet Count 274 K/mm3 (140-440); Red Blood Count 4.51 M/mm3 (3.65-5.03); Red Cell Distribution Width 16.7 % (13.2-15.2)
[2018-11-13] MEDS ORDERED: ZOFRAN IV ONE (10:24)
[2018-11-13] MEDS ORDERED: NACL 0.9% 1000 ML 1,000 ML IV ONE (10:24)
[2018-11-13] MEDS ORDERED: TORADOL IV ONE (10:24)
[2018-11-13 10:29] LABS: Bacteria,Urine 2+ /HPF (Negative); Bilirubin,Urine NEG (Negative); Blood,Urine NEG (Negative); Color,Urine Yellow (Yellow); Mucus,Urine 2+ /HPF; Protein,Urine <15 mg/dL mg/dL (Negative)
[2018-11-13 10:34] LABS: Alanine Aminotransferase 10 units/L (7-56); Albumin 3.7 g/dL (3.9-5); BUN/Creatinine Ratio 11; Blood Urea Nitrogen 9 mg/dL (7-17); Calcium 9.2 mg/dL (8.4-10.2); Hemolysis Index 4
--- NOTE | 2018-11-13 14:41 | Cat Scan Report ---
CT ABDOMEN AND PELVIS WITH CONTRAST HISTORY: Abdominal pain with nausea, vomiting and diarrhea for one day. COMPARISON: None. TECHNIQUE: Axial CT images were obtained through the abdomen and pelvis after 100 cc of Omnipaque 300 intravenously. Sagittal and coronal reformatted images. All CT scans at this location are performed using CT dose reduction for ALARA by means of automated exposure control. FINDINGS: CT ABDOMEN: Lung Bases: Clear. Liver: No significant abnormality. Biliary: There are multiple gallstones within the gallbladder measuring up to 1.7 cm. No evidence for abnormal gallbladder distention, wall thickening or surrounding fluid. The common bile duct and intr ahepatic ducts are within normal limits. Spleen: No significant abnormality. Unenlarged. Pancreas: No significant abnormality. Adrenals: No significant abnormality. Kidneys: No significant abnormality. Lymphatics: No lymphadenopathy. Vasculature: No significant abnormality. Bowel/Peritoneum: No significant abnormality. No free air. No free fluid. Normal appendix. CT PELVIS: : A 3.9 cm right ovarian cyst is identified. The uterus and left adnexa are unremarkable. Osseous Structures: No significant abnormality. Additional Findings: None IMPRESSION: Cholelithiasis without evidence of acute cholecystitis. 3.9 cm right ovarian cyst. Signer Name: Félix Sanchez Jr, MD Signed: 11/13/2018 2:36 PM Workstation Name: [id number]
--- NOTE | 2018-11-13 15:08 | Emergency Department Report ---
ED Abdominal Pain HPI - General Chief Complaint: Abdominal Pain Stated Complaint: ABDOMINAL Time Seen by Provider: 11/13/18 10:17 Source: patient Mode of arrival: Ambulatory Limitations: No Limitations - History of Present Illness Initial Comments: Patient is a 23-year-old female who is presenting with some abdominal discomfort. Patient states she has pain in the upper abdomen for the last day. Patient has had some several episodes of vomiting with nausea. Patient denies diarrhea, fever, cough cold or congestion. Location: epigastric Radiation: none Severity scale (0 -10): 8 Consistency: constant - Related Data Previous Rx's Medication Instructions Recorded Last Taken Type Ondansetron [Zofran Odt] 4 mg PO Q8HR PRN #10 tab.rapdis 07/26/18 Unknown Rx Sulfamethoxazole/Trimethoprim 1 each PO BID #10 tablet 07/26/18 Unknown Rx [Bactrim DS TAB] Dicyclomine [Bentyl] 20 mg PO QID #10 tablet 11/13/18 Unknown Rx Ondansetron [Zofran Odt] 4 mg PO Q8HR #10 tab.rapdis 11/13/18 Unknown Rx traMADol [Ultram] 50 mg PO Q6HR PRN #12 tablet 11/13/18 Unknown Rx Allergies Allergy/AdvReac Type Severity Reaction Status Date / Time No Known Allergies Allergy Unverified 08/08/15 01:01 ED Review of Systems ROS: Stated complaint: ABDOMINAL Other details as noted in HPI Comment: All other systems reviewed and negative ED Past Medical Hx - Past Medical History Previous Medical History?: Yes Hx Asthma: Yes Additional medical history: Bronchitis - Surgical History Past Surgical History?: No - Social History Smoking Status: Current Every Day Smoker Substance Use Type: None - Medications Home Medications: Home Medications Medication Instructions Recorded Confirmed Last Taken Type Ondansetron [Zofran Odt] 4 mg PO Q8HR PRN #10 tab.rapdis 07/26/18 Unknown Rx Sulfamethoxazole/Trimethoprim 1 each PO BID #10 tablet 07/26/18 Unknown Rx [Bactrim DS TAB] Dicyclomine [Bentyl] 20 mg PO QID #10 tablet 11/13/18 Unknown Rx Ondansetron [Zofran Odt] 4 mg PO Q8HR #10 tab.rapdis 11/13/18 Unknown Rx traMADol [Ultram] 50 mg PO Q6HR PRN #12 tablet 11/13/18 Unknown Rx ED Physical Exam - General Limitations: No Limitations General appearance: alert, in no apparent distress - Head Head exam: Present: atraumatic, normocephalic - Eye Eye exam: Present: normal appearance - ENT ENT exam: Present: mucous membranes moist - Neck Neck exam: Present: normal inspection - Respiratory Respiratory exam: Present: normal lung sounds bilaterally. Absent: respiratory distress, wheezes, rales, rhonchi - Cardiovascular Cardiovascular Exam: Present: regular rate, normal rhythm. Absent: systolic murmur, diastolic murmur, rubs, gallop - GI/Abdominal GI/Abdominal exam: Present: soft, normal bowel sounds. Absent: distended, tenderness, guarding, rebound - Extremities Exam Extremities exam: Present: normal inspection - Back Exam Back exam: Present: normal inspection - Neurological Exam Neurological exam: Present: alert, oriented X3 - Psychiatric Psychiatric exam: Present: normal affect, normal mood - Skin Skin exam: Present: warm, dry, intact, normal color. Absent: rash ED Course Vital Signs 11/13/18 09:36 Temperature 98.5 F Pulse Rate 77 Respiratory 16 Rate Blood Pressure 134/86 O2 Sat by Pulse 100 Oximetry ED Medical Decision Making - Lab Data Result diagrams: 11/13/18 09:53 11/13/18 09:53 Lab Results 11/13/18 11/13/18 11/13/18 Range/Units 09:49 09:53 09:53 WBC 8.6 (4.5-11.0) K/mm3 RBC 4.51 (3.65-5.03) M/mm3 Hgb 11.6 (10.1-14.3) gm/dl Hct 36.1 (30.3-42.9) % MCV 80 (79-97) fl MCH 26 L (28-32) pg MCHC 32 (30-34) % RDW 16.7 H (13.2-15.2) % Plt Count 274 (140-440) K/mm3 Lymph % (Auto) 23.6 (13.4-35.0) % Will % (Auto) 5.6 (0.0-7.3) % Eos % (Auto) 2.4 (0.0-4.3) % Baso % (Auto) 0.7 (0.0-1.8) % Lymph # 2.0 (1.2-5.4) K/mm3 Will # 0.5 (0.0-0.8) K/mm3 Eos # 0.2 (0.0-0.4) K/mm3 Baso # 0.1 (0.0-0.1) K/mm3 Seg Neutrophils % 67.7 (40.0-70.0) % Seg Neutrophils # 5.8 (1.8-7.7) K/mm3 Sodium 138 (137-145) mmol/L Potassium 3.8 (3.6-5.0) mmol/L Chloride 103.9 (98-107) mmol/L Carbon Dioxide 25 (22-30) mmol/L Anion Gap 13 mmol/L BUN 9 (7-17) mg/dL Creatinine 0.8 (0.7-1.2) mg/dL Estimated GFR > 60 ml/min BUN/Creatinine Ratio 11 % Glucose 109 H (65-100) mg/dL Calcium 9.2 (8.4-10.2) mg/dL Total Bilirubin 0.20 (0.1-1.2) mg/dL AST 12 (5-40) units/L ALT 10 (7-56) units/L Alkaline Phosphatase 51 (35-129) units/L Total Protein 7.7 (6.3-8.2) g/dL Albumin 3.7 L (3.9-5) g/dL Albumin/Globulin Ratio 0.9 % HCG, Qual (Negative) Urine Color Yellow (Yellow) Urine Turbidity Clear (Clear) Urine pH 6.0 (5.0-7.0) Ur Specific [place] 1.024 (1.003-1.030) Urine Protein <15 mg/dl (Negative) mg/dL Urine Glucose (UA) Neg (Negative) mg/dL Urine Ketones Neg (Negative) mg/dL Urine Blood Neg (Negative) Urine Nitrite Neg (Negative) Urine Bilirubin Neg (Negative) Urine Urobilinogen 2.0 (<2.0) mg/dL Ur Leukocyte Esterase Sm (Negative) Urine WBC (Auto) 2.0 (0.0-6.0) /HPF Urine RBC (Auto) 3.0 (0.0-6.0) /HPF U Epithel Cells (Auto) 7.0 (0-13.0) /HPF Urine Bacteria (Auto) 2+ (Negative) /HPF Urine Mucus 2+ /HPF 11/13/18 Range/Units 12:55 WBC (4.5-11.0) K/mm3 RBC (3.65-5.03) M/mm3 Hgb (10.1-14.3) gm/dl Hct (30.3-42.9) % MCV (79-97) fl MCH (28-32) pg MCHC (30-34) % RDW (13.2-15.2) % Plt Count (140-440) K/mm3 Lymph % (Auto) (13.4-35.0) % Will % (Auto) (0.0-7.3) % Eos % (Auto) (0.0-4.3) % Baso % (Auto) (0.0-1.8) % Lymph # (1.2-5.4) K/mm3 Will # (0.0-0.8) K/mm3 Eos # (0.0-0.4) K/mm3 Baso # (0.0-0.1) K/mm3 Seg Neutrophils % (40.0-70.0) % Seg Neutrophils # (1.8-7.7) K/mm3 Sodium (137-145) mmol/L Potassium (3.6-5.0) mmol/L Chloride (98-107) mmol/L Carbon Dioxide (22-30) mmol/L Anion Gap mmol/L BUN (7-17) mg/dL Creatinine (0.7-1.2) mg/dL Estimated GFR ml/min BUN/Creatinine Ratio % Glucose (65-100) mg/dL Calcium (8.4-10.2) mg/dL Total Bilirubin (0.1-1.2) mg/dL AST (5-40) units/L ALT (7-56) units/L Alkaline Phosphatase (35-129) units/L Total Protein (6.3-8.2) g/dL Albumin (3.9-5) g/dL Albumin/Globulin Ratio % HCG, Qual Negative (Negative) Urine Color (Yellow) Urine Turbidity (Clear) Urine pH (5.0-7.0) Ur Specific [place] (1.003-1.030) Urine Protein (Negative) mg/dL Urine Glucose (UA) (Negative) mg/dL Urine Ketones (Negative) mg/dL Urine Blood (Negative) Urine Nitrite (Negative) Urine Bilirubin (Negative) Urine Urobilinogen (<2.0) mg/dL Ur Leukocyte Esterase (Negative) Urine WBC (Auto) (0.0-6.0) /HPF Urine RBC (Auto) (0.0-6.0) /HPF U Epithel Cells (Auto) (0-13.0) /HPF Urine Bacteria (Auto) (Negative) /HPF Urine Mucus /HPF - Radiology Data 8 - Medical Decision Making [facility] [address] [place] [address] Cat Scan Report Signed Patient: EMMANUEL ROSENBERG MR# : [id number] : 1995 Acct:[id number] Age/Sex: 23 / F ADM Date: 11/13/18 Loc: ED Attending Dr: Ordering Physician: TERRIE MELVIN MD Date of Service: 11/13/18 Procedure(s): CT abdomen pelvis w con Accession Number(s): [id number] cc: TERRIE MELVIN MD CT ABDOMEN AND PELVIS WITH CONTRAST HISTORY: Abdominal pain with nausea, vomiting and diarrhea for one day. COMPARISON: None. TECHNIQUE: Axial CT images were obtained through the abdomen and pelvis after 100 cc of Omnipaque 300 intravenously. Sagittal and coronal reformatted images. All CT scans at this location are performed using CT dose reduction for ALARA by means of automated exposure control. FINDINGS: CT ABDOMEN: Lung Bases: Clear. Liver: No significant abnormality. Biliary: There are multiple gallstones within the gallbladder measuring up to 1.7 cm. No evidence for abnormal gallbladder distention, wall thickening or surrounding fluid. The common bile duct and intrahepatic ducts are within normal limits. Spleen: No significant abnormality. Unenlarged. Pancreas: No significant abnormality. Adrenals: No significant abnormality. Kidneys: No significant abnormality. Lymphatics: No lymphadenopathy. Vasculature: No significant abnormality. Bowel/Peritoneum: No significant abnormality. No free air. No free fluid. Normal appendix. CT PELVIS: : A 3.9 cm right ovarian cyst is identified. The uterus and left adnexa are unremarkable. Osseous Structures: No significant abnormality. Additional Findings: None IMPRESSION: Cholelithiasis without evidence of acute cholecystitis. 3.9 cm right ovarian cyst. Signer Name: Félix Sanchez Jr, MD Signed: 11/13/2018 2:36 PM Workstation Name: [id number] Transcribed By: TTR Dictated By: FÉLIX SANCHEZ JR, MD Electronically Authenticated By: FÉLIX SANCHEZ JR, MD Signed Date/Time: 11/13/181435 DD/ 32 TD/TT: Critical care attestation.: If time is entered above; I have spent that time in minutes in the direct care of this critically ill patient, excluding procedure time. ED Disposition Clinical Impression: Biliary colic Gallstone Qualifiers: Cholecystitis presence: without cholecystitis Biliary obstruction: without biliary obstruction Qualified Code(s): K80.20 - Calculus of gallbladder without cholecystitis without obstruction Disposition: DC-01 TO HOME OR SELFCARE Is pt being admited?: No Does the pt Need Aspirin: No Condition: Stable Instructions: Biliary Colic (ED) Referrals: ALLY WHITE DO [Staff Physician] - 3-5 Days Time of Disposition: 15:10
[2018-11-13 15:44] VITALS: BP 122/72
== END 2018-11-13 15:44 | disposition home or self-care (01) ==
LOC: ED 09:27
DX: K80.20 Calculus of gallbladder without cholecystitis without obstruction (principal); K80.50 Calculus of bile duct without cholangitis or cholecystitis without obstruction; F17.200 Nicotine dependence, unspecified, uncomplicated; J45.909 Unspecified asthma, uncomplicated
CPT/HCPCS: 36415; 74177; 80053; 81001; 84703; 85025; J1885; J2405; J7030; Q9967; 96361; 96374; 96375

== ENCOUNTER 2018-12-20 06:51 | Emergency (ER) | payer SELFPAY ==
[2018-12-20 07:02] VITALS: BP 113/74
[2018-12-20 07:47] LABS: Basophils % (Auto) 0.6 % (0.0-1.8); Eosinophils # (Auto) 0.2 K/mm3 (0.0-0.4); Eosinophils % (Auto) 2.8 % (0.0-4.3); Hematocrit 35.7 % (30.3-42.9); Hemoglobin 11.6 gm/dl (10.1-14.3); Lymphocytes # (Auto) 1.4 K/mm3 (1.2-5.4); Lymphocytes % (Auto) 21.6 % (13.4-35.0); Mean Corpuscular HGB Conc 33 % (30-34); Mean Corpuscular Volume 81 fl (79-97); Monocytes # (Auto) 0.4 K/mm3 (0.0-0.8); Monocytes % (Auto) 5.5 % (0.0-7.3); Platelet Count 239 K/mm3 (140-440); Red Blood Count 4.42 M/mm3 (3.65-5.03); Red Cell Distribution Width 16.4 % (13.2-15.2)
[2018-12-20 07:51] LABS: Bacteria,Urine 4+ /HPF (Negative); Bilirubin,Urine NEG (Negative); Blood,Urine NEG (Negative); Color,Urine Yellow (Yellow); Protein,Urine <15 mg/dL mg/dL (Negative); Urobilinogen,Urine < 2.0 mg/dL (<2.0)
[2018-12-20 08:08] LABS: Alanine Aminotransferase 13 units/L (7-56); Albumin 3.6 g/dL (3.9-5); BUN/Creatinine Ratio 16; Blood Urea Nitrogen 11 mg/dL (7-17); Hemolysis Index 0
[2018-12-20] MEDS ORDERED: ROCEPHIN IM STA (08:47)
[2018-12-20] MEDS ORDERED: XYLOCAINE 1% MPF 5 mL INFILTRATI ONE (08:47)
--- NOTE | 2018-12-20 10:17 | Ultrasound Report ---
LIMITED RUQ ABDOMINAL ULTRASOUND INDICATION: Right upper quadrant abdominal pain and vomiting for one day. COMPARISON: No relevant prior imaging study available. FINDINGS: Pancreas: Visualized portions show no significant abnormality. Abdominal Aorta: No significant abnormality. IVC: No significant abnormality. Liver: The liver measures 14 cm in length. No significant abnormality. Normal hepatopedal blood flow in the main portal vein. Gallbladder: Multiple shadowing gallstones measuring up to 1 cm are identified in the gallbladder. No evidence for abnormal gallbladder distention or wall thickening. Bile ducts: No significant abnormality. Common bile duct measures 2.3 mm. Right kidney: No significant abnormality visualized.. Free fluid: None. Additional Findings: None. IMPRESSION: Cholelithiasis. No findings to suggest acute cholecystitis. Signer Name: Félix Sanchez Jr, MD Signed: 12/20/2018 10:13 AM Workstation Name: [id number]
--- NOTE | 2018-12-20 11:35 | Emergency Department Report ---
ED Abdominal Pain HPI - General Chief Complaint: Abdominal Pain Stated Complaint: ABD PAIN Time Seen by Provider: 12/20/18 07:29 Source: patient, EMS Mode of arrival: Stretcher Limitations: No Limitations - History of Present Illness MD Complaint: abdominal pain -: Gradual Location: RUQ, epigastric, suprapubic Radiation: none Migration to: RUQ Severity: mild Consistency: constant Improves With: nothing Worsens With: nothing Associated Symptoms: denies other symptoms - Related Data Previous Rx's Medication Instructions Recorded Last Taken Type Ondansetron [Zofran Odt] 4 mg PO Q8HR PRN #10 tab.rapdis 07/26/18 Unknown Rx Sulfamethoxazole/Trimethoprim 1 each PO BID #10 tablet 07/26/18 Unknown Rx [Bactrim DS TAB] Dicyclomine [Bentyl] 20 mg PO QID #10 tablet 11/13/18 Unknown Rx Ondansetron [Zofran Odt] 4 mg PO Q8HR #10 tab.rapdis 11/13/18 Unknown Rx traMADol [Ultram] 50 mg PO Q6HR PRN #12 tablet 11/13/18 Unknown Rx Nitrofurantoin [place]/M-Cryst 100 mg PO Q12HR #20 capsule 12/20/18 Unknown Rx [Macrobid CAP] Phenazopyridine [Pyridium] 200 mg PO TID #9 tab 12/20/18 Unknown Rx Allergies Allergy/AdvReac Type Severity Reaction Status Date / Time No Known Allergies Allergy Unverified 08/08/15 01:01 ED Review of Systems ROS: Stated complaint: ABD PAIN Other details as noted in HPI Comment: All other systems reviewed and negative ED Past Medical Hx - Past Medical History Previous Medical History?: Yes Hx Asthma: Yes Additional medical history: Bronchitis. Gall Stones - Surgical History Past Surgical History?: No - Social History Smoking Status: Current Every Day Smoker Substance Use Type: None - Medications Home Medications: Home Medications Medication Instructions Recorded Confirmed Last Taken Type Ondansetron [Zofran Odt] 4 mg PO Q8HR PRN #10 tab.rapdis 07/26/18 Unknown Rx Sulfamethoxazole/Trimethoprim 1 each PO BID #10 tablet 07/26/18 Unknown Rx [Bactrim DS TAB] Dicyclomine [Bentyl] 20 mg PO QID #10 tablet 11/13/18 Unknown Rx Ondansetron [Zofran Odt] 4 mg PO Q8HR #10 tab.rapdis 11/13/18 Unknown Rx traMADol [Ultram] 50 mg PO Q6HR PRN #12 tablet 11/13/18 Unknown Rx Nitrofurantoin [place]/M-Cryst 100 mg PO Q12HR #20 capsule 12/20/18 Unknown Rx [Macrobid CAP] Phenazopyridine [Pyridium] 200 mg PO TID #9 tab 12/20/18 Unknown Rx ED Physical Exam - General Limitations: No Limitations General appearance: alert, in no apparent distress - Head Head exam: Present: atraumatic, normocephalic - Eye Eye exam: Present: normal appearance, PERRL Pupils: Present: normal accommodation - ENT ENT exam: Present: normal exam, mucous membranes moist, TM's normal bilaterally - Neck Neck exam: Present: normal inspection, full ROM. Absent: tenderness, meningismus, thyromegaly - Respiratory Respiratory exam: Present: normal lung sounds bilaterally. Absent: respiratory distress - Cardiovascular Cardiovascular Exam: Present: regular rate, normal rhythm. Absent: systolic murmur, diastolic murmur, rubs, gallop - GI/Abdominal GI/Abdominal exam: Present: soft, tenderness (hematemesis. He area and also to the epigastric region.Quadrant. There is no Myers sign. No tenderness at McBurney's, no Rovsing, no cai tenderness, no Nichelle sign,. No CVA tende rness.) - Extremities Exam Extremities exam: Present: normal inspection - Back Exam Back exam: Present: normal inspection - Neurological Exam Neurological exam: Present: alert, oriented X3 - Psychiatric Psychiatric exam: Present: normal affect, normal mood - Skin Skin exam: Present: warm, dry, intact, normal color. Absent: rash ED Course Vital Signs 12/20/18 06:56 Temperature 98.5 F Pulse Rate 74 Respiratory 18 Rate Blood Pressure 113/74 O2 Sat by Pulse 100 Oximetry ED Medical Decision Making - Lab Data Result diagrams: 12/20/18 07:33 12/20/18 07:33 - Medical Decision Making 23-year-old obese [place] female with a known history of gallstones. States it is due to have them surgically removed. However, has not yet followed up with the surgeon should do so. Presents to the ED complaining of similar gallbladder-related symptoms. Findings that show that she developed the urinary tract infection. There is no evidence of any acute cholecystitis or pancreatitis or other gastrointestinal urgent emergent conditions at this time. Advised to take the anabiotic 40 tract infection follow-up with GI as she was previously instructed for definitive management of her gall stones Critical care attestation.: If time is entered above; I have spent that time in minutes in the direct care of this critically ill patient, excluding procedure time. ED Disposition Clinical Impression: Cholecystolithiasis, UTI (urinary tract infection) Disposition: TO HOME OR SELFCARE Is pt being admited?: No Does the pt Need Aspirin: No Condition: Stable Instructions: Abdominal Pain (ED), Urinary Tract Infection in Women (ED), Dysuria (ED) Prescriptions: Nitrofurantoin [place]/M-Cryst [Macrobid CAP] 100 mg PO Q12HR #20 capsule Phenazopyridine [Pyridium] 200 mg PO TID #9 tab Referrals: ABILIO CARNES MD [Primary Care Provider] - 3-5 Days
== END 2018-12-20 11:47 | disposition home or self-care (01) ==
LOC: ED 06:51
DX: K80.20 Calculus of gallbladder without cholecystitis without obstruction (principal); N39.0 Urinary tract infection, site not specified; F17.200 Nicotine dependence, unspecified, uncomplicated; J45.909 Unspecified asthma, uncomplicated; Z79.899 Other long term (current) drug therapy
CPT/HCPCS: 36415; 76705; 80053; 81001; 83690; 84703; 85025; 87086; 96372; 99284; J0696

== ENCOUNTER 2018-12-25 06:43 | Emergency (ER) | payer SELFPAY ==
[2018-12-25 07:06] VITALS: BP 122/61
[2018-12-25 07:24] LABS: Basophils % (Auto) 0.6 % (0.0-1.8); Eosinophils # (Auto) 0.2 K/mm3 (0.0-0.4); Eosinophils % (Auto) 2.5 % (0.0-4.3); Hematocrit 36.1 % (30.3-42.9); Hemoglobin 11.7 gm/dl (10.1-14.3); Lymphocytes # (Auto) 1.6 K/mm3 (1.2-5.4); Lymphocytes % (Auto) 24.4 % (13.4-35.0); Mean Corpuscular HGB Conc 32 % (30-34); Mean Corpuscular Volume 81 fl (79-97); Monocytes # (Auto) 0.4 K/mm3 (0.0-0.8); Monocytes % (Auto) 6.4 % (0.0-7.3); Platelet Count 256 K/mm3 (140-440); Red Blood Count 4.48 M/mm3 (3.65-5.03); Red Cell Distribution Width 16.2 % (13.2-15.2)
[2018-12-25 07:37] LABS: Alanine Aminotransferase 9 units/L (7-56); Albumin 3.8 g/dL (3.9-5); BUN/Creatinine Ratio 17; Blood Urea Nitrogen 12 mg/dL (7-17); Calcium 9.2 mg/dL (8.4-10.2); Hemolysis Index 0
[2018-12-25 08:00] LABS: Bacteria,Urine 1+ /HPF (Negative); Bilirubin,Urine NEG (Negative); Blood,Urine NEG (Negative); Color,Urine Yellow (Yellow); Mucus,Urine 1+ /HPF; Protein,Urine <15 mg/dL mg/dL (Negative); Urobilinogen,Urine < 2.0 mg/dL (<2.0)
[2018-12-25] MEDS ORDERED: ZOFRAN ODT PO ONE (08:14)
[2018-12-25] MEDS ORDERED: PEPCID PO ONE (08:14)
[2018-12-25] MEDS ORDERED: BENTYL PO ONE (08:14)
--- NOTE | 2018-12-25 08:50 | Emergency Department Report ---
ED Abdominal Pain HPI - General Chief Complaint: Abdominal Pain Stated Complaint: ABD PAIN, LOWER BACK PAIN Time Seen by Provider: 12/25/18 07:59 Source: patient, EMS Mode of arrival: Stretcher Limitations: No Limitations - History of Present Illness Initial Comments: The history of gallbladder stones recently diagnosed a month ago who presents to ED today complaining of right upper quadrant pain with some nausea or vomiting started last night. Patient states that she was seen last week and had an ultrasound done. She denies fevers/chills/diarrhea MD Complaint: abdominal pain Location: RUQ Migration to: no migration Severity: mild Severity scale (0 -10): 4 Quality: cramping Consistency: intermittent - Related Data Previous Rx's Medication Instructions Recorded Last Taken Type Ondansetron [Zofran Odt] 4 mg PO Q8HR PRN #10 tab.rapdis 07/26/18 Unknown Rx Sulfamethoxazole/Trimethoprim 1 each PO BID #10 tablet 07/26/18 Unknown Rx [Bactrim DS TAB] traMADol [Ultram] 50 mg PO Q6HR PRN #12 tablet 11/13/18 Unknown Rx Nitrofurantoin [place]/M-Cryst 100 mg PO Q12HR #20 capsule 12/20/18 Unknown Rx [Macrobid CAP] Phenazopyridine [Pyridium] 200 mg PO TID #9 tab 12/20/18 Unknown Rx Dicyclomine [Bentyl] 20 mg PO QID #10 tablet 12/25/18 Unknown Rx Ondansetron [Zofran ODT TAB] 4 mg PO Q8HR #10 tab.rapdis 12/25/18 Unknown Rx Allergies Allergy/AdvReac Type Severity Reaction Status Date / Time coconut Allergy Rash Verified 12/25/18 07:05 ED Review of Systems ROS: Stated complaint: ABD PAIN, LOWER BACK PAIN Other details as noted in HPI Comment: All other systems reviewed and negative ED Past Medical Hx - Past Medical History Previous Medical History?: Yes Hx Asthma: Yes Additional medical history: Bronchitis. Gall Stones - Surgical History Past Surgical History?: No - Social History Smoking Status: Former Smoker Substance Use Type: None - Medications Home Medications: Home Medications Medication Instructions Recorded Confirmed Last Taken Type Ondansetron [Zofran Odt] 4 mg PO Q8HR PRN #10 tab.rapdis 07/26/18 Unknown Rx Sulfamethoxazole/Trimethoprim 1 each PO BID #10 tablet 07/26/18 Unknown Rx [Bactrim DS TAB] traMADol [Ultram] 50 mg PO Q6HR PRN #12 tablet 11/13/18 Unknown Rx Nitrofurantoin [place]/M-Cryst 100 mg PO Q12HR #20 capsule 12/20/18 Unknown Rx [Macrobid CAP] Phenazopyridine [Pyridium] 200 mg PO TID #9 tab 12/20/18 Unknown Rx Dicyclomine [Bentyl] 20 mg PO QID #10 tablet 12/25/18 Unknown Rx Ondansetron [Zofran ODT TAB] 4 mg PO Q8HR #10 tab.rapdis 12/25/18 Unknown Rx ED Physical Exam - General Limitations: No Limitations General appearance: alert, in no apparent distress - Head Head exam: Present: atraumatic, normocephalic - Eye Eye exam: Present: normal appearance - ENT ENT exam: Present: mucous membranes moist - Neck Neck exam: Present: normal inspection - Respiratory Respiratory exam: Present: normal lung sounds bilaterally. Absent: respiratory distress - Cardiovascular Cardiovascular Exam: Present: regular rate, normal rhythm. Absent: systolic murmur, diastolic murmur, rubs, gallop - GI/Abdominal GI/Abdominal exam: Present: soft, tenderness (right upper quadrant), normal bowel sounds. Absent: distended, guarding, rebound, mass - Extremities Exam Extremities exam: Present: normal inspection - Back Exam Back exam: Present: normal inspection - Neurological Exam Neurological exam: Present: alert, oriented X3 - Psychiatric Psychiatric exam: Present: normal affect, normal mood - Skin Skin exam: Present: warm, dry, intact, normal color. Absent: rash ED Course Vital Signs 12/25/18 07:04 Temperature 97.9 F Pulse Rate 67 Respiratory 16 Rate Blood Pressure 122/61 O2 Sat by Pulse 100 Oximetry ED Medical Decision Making - Lab Data Result diagrams: 12/25/18 07:12 12/25/18 07:12 Laboratory Last Values WBC 6.4 K/mm3 (4.5-11.0) 12/25/18 07:12 RBC 4.48 M/mm3 (3.65-5.03) 12/25/18 07:12 Hgb 11.7 gm/dl (10.1-14.3) 12/25/18 07:12 Hct 36.1 % (30.3-42.9) 12/25/18 07:12 MCV 81 fl (79-97) 12/25/18 07:12 MCH 26 pg (28-32) L 12/25/18 07:12 MCHC 32 % (30-34) 12/25/18 07:12 RDW 16.2 % (13.2-15.2) H 12/25/18 07:12 Plt Count 256 K/mm3 (140-440) 12/25/18 07:12 Lymph % (Auto) 24.4 % (13.4-35.0) 12/25/18 07:12 [place] % (Auto) 6.4 % (0.0-7.3) 12/25/18 07:12 Eos % (Auto) 2.5 % (0.0-4.3) 12/25/18 07:12 Baso % (Auto) 0.6 % (0.0-1.8) 12/25/18 07:12 Lymph # 1.6 K/mm3 (1.2-5.4) 12/25/18 07:12 [place] # 0.4 K/mm3 (0.0-0.8) 12/25/18 07:12 Eos # 0.2 K/mm3 (0.0-0.4) 12/25/18 07:12 Baso # 0.0 K/mm3 (0.0-0.1) 12/25/18 07:12 Seg Neutrophils % 66.1 % (40.0-70.0) 12/25/18 07:12 Seg Neutrophils # 4.2 K/mm3 (1.8-7.7) 12/25/18 07:12 Sodium 137 mmol/L (137-145) 12/25/18 07:12 Potassium 4.2 mmol/L (3.6-5.0) 12/25/18 07:12 Chloride 102.1 mmol/L (98-107) 12/25/18 07:12 Carbon Dioxide 25 mmol/L (22-30) 12/25/18 07:12 14 mmol/L 12/25/18 07:12 BUN 12 mg/dL (7-17) 12/25/18 07:12 0.7 mg/dL (0.7-1.2) 12/25/18 07:12 Estimated GFR > 60 ml/min 12/25/18 07:12 17 % 12/25/18 07:12 Glucose 115 mg/dL (65-100) H 12/25/18 07:12 Calcium 9.2 mg/dL (8.4-10.2) 12/25/18 07:12 0.20 mg/dL (0.1-1.2) 12/25/18 07:12 AST 14 units/L (5-40) 12/25/18 07:12 ALT 9 units/L (7-56) 12/25/18 07:12 53 units/L (35-129) 12/25/18 07:12 8.1 g/dL (6.3-8.2) 12/25/18 07:12 3.8 g/dL (3.9-5) L 12/25/18 07:12 0.9 % 12/25/18 07:12 20 units/L (13-60) 12/25/18 07:12 HCG, Qual Negative (Negative) 12/25/18 07:12 Yellow (Yellow) 12/25/18 07:35 Slightly-cloudy (Clear) 12/25/18 07:35 7.0 (5.0-7.0) 12/25/18 07:35 Ur Specific [place] 1.024 (1.003-1.030) 12/25/18 07:35 <15 mg/dl mg/dL (Negative) 12/25/18 07:35 Neg mg/dL (Negative) 12/25/18 07:35 Neg mg/dL (Negative) 12/25/18 07:35 Neg (Negative) 12/25/18 07:35 Neg (Negative) 12/25/18 07:35 Neg (Negative) 12/25/18 07:35 < 2.0 mg/dL (<2.0) 12/25/18 07:35 Ur Leukocyte Esterase Lg (Negative) 12/25/18 07:35 43.0 /HPF (0.0-6.0) H 12/25/18 07:35 16.0 /HPF (0.0-6.0) 12/25/18 07:35 U Epithel Cells (Auto) 19.0 /HPF (0-13.0) H 12/25/18 07:35 1+ /HPF (Negative) 12/25/18 07:35 1+ /HPF 12/25/18 07:35 - Radiology Data Radiology results: report reviewed, image reviewed LIMITED RUQ ABDOMINAL ULTRASOUND INDICATION: Right upper quadrant abdominal pain and vomiting for one day. COMPARISON: No relevant prior imaging study available. FINDINGS: Pancreas: Visualized portions show no significant abnormality. Abdominal Aorta: No significant abnormality. IVC: No significant abnormality. Liver: The liver measures 14 cm in length. No significant abnormality. Normal hepatopedal blood flow in the main portal vein. Gallbladder: Multiple shadowing gallstones measuring up to 1 cm are identified in the gallbladder. No evidence for abnormal gallbladder distention or wall thickening. Bile ducts: No significant abnormality. Common bile duct measures 2.3 mm. Right kidney: No significant abnormality visualized.. Free fluid: None. Additional Findings: None. IMPRESSION: Cholelithiasis. No findings to suggest acute cholecystitis. Signer Name: Félix Gordon Jr, MD Signed: 12/20/2018 10:13 AM Workstation Name: [id number] Transcribed By: TTR Dictated By: FÉLIX GORDON JR, MD Electronically Authenticated By: FÉLIX GORDON JR, MD Signed Date/Time: 12/20/18 1013 - Medical Decision Making 22-year-old male presents with abdominal pain with nausea and vomiting from ga llbladder stones. Reviewed ultrasound was completed 12/20/2018. Discussed the patient she is to follow-up with GI or Gen. surgery for management of gallstones. Labs today shows no signs of leukocytosis or any acute infection. Discussed his findings with the patient. Discussed the patient to follow-up within a week. Patient received Zofran Pepcid and Benadryl in the ED today Vital signs are normal she is in no acute distress Critical care attestation.: If time is entered above; I have spent that time in minutes in the direct care of this critically ill patient, excluding procedure time. ED Disposition Clinical Impression: Cholelithiasis Disposition: DC-01 TO HOME OR SELFCARE Is pt being admited?: No Does the pt Need Aspirin: No Condition: Stable Instructions: Abdominal Pain (ED), Biliary Colic (ED) Additional Instructions: Make sure to follow up with the primary care physician as discussed. Take all your medications as you've been prescribed. If you have any worsening symptoms or develop new symptoms please return to ED immediately. Prescriptions: Dicyclomine [Bentyl] 20 mg PO QID #10 tablet Ondansetron [Zofran ODT TAB] 4 mg PO Q8HR #10 tab.rapdis Referrals: ABILIO CARNES MD [Primary Care Provider] - 3-5 Days [facility] [Provider Group] - 3-5 Days [facility] [Provider Group] - 3-5 Days [facility] [Provider Group] - 3-5 Days [facility] [Provider Group] - 3-5 Days Forms: Accompanied Note, Work/School Release Form(ED) Time of Disposition: 09:12
== END 2018-12-25 09:21 | disposition home or self-care (01) ==
LOC: ED 06:43
DX: K80.20 Calculus of gallbladder without cholecystitis without obstruction (principal); J45.909 Unspecified asthma, uncomplicated; Z79.899 Other long term (current) drug therapy
CPT/HCPCS: 36415; 80053; 81001; 83690; 84703; 85025; 87086; Q0162

== ENCOUNTER 2019-01-04 07:50 | Emergency (ER) | payer SELFPAY ==
[2019-01-04 08:26] LABS: Basophils % (Auto) 0.6 % (0.0-1.8); Eosinophils # (Auto) 0.2 K/mm3 (0.0-0.4); Eosinophils % (Auto) 3.1 % (0.0-4.3); Hematocrit 36.8 % (30.3-42.9); Lymphocytes # (Auto) 1.6 K/mm3 (1.2-5.4); Lymphocytes % (Auto) 24.6 % (13.4-35.0); Mean Corpuscular HGB Conc 33 % (30-34); Mean Corpuscular Volume 81 fl (79-97); Monocytes # (Auto) 0.4 K/mm3 (0.0-0.8); Monocytes % (Auto) 6.4 % (0.0-7.3); Platelet Count 244 K/mm3 (140-440); Red Blood Count 4.56 M/mm3 (3.65-5.03); Red Cell Distribution Width 16.1 % (13.2-15.2)
[2019-01-04 08:40] LABS: Alanine Aminotransferase 10 units/L (7-56); Albumin 3.5 g/dL (3.9-5); BUN/Creatinine Ratio 20; Blood Urea Nitrogen 16 mg/dL (7-17); Calcium 8.8 mg/dL (8.4-10.2); Hemolysis Index 2
[2019-01-04 08:55] LABS: Bacteria,Urine 2+ /HPF (Negative); Bilirubin,Urine NEG (Negative); Blood,Urine NEG (Negative); Color,Urine Yellow (Yellow); Mucus,Urine 2+ /HPF; Protein,Urine <15 mg/dL mg/dL (Negative); Urobilinogen,Urine < 2.0 mg/dL (<2.0)
[2019-01-04 09:03] LABS: HCG Qualitative,Urine Negative (Negative)
[2019-01-04] MEDS ORDERED: BENTYL IM ONE (09:39)
[2019-01-04] MEDS ORDERED: ZOFRAN IM ONE (09:39)
[2019-01-04] MEDS ORDERED: SUBLIMAZE IM ONE (09:39)
--- NOTE | 2019-01-04 09:42 | Emergency Department Report ---
HPI - General Chief Complaint: Abdominal Pain Time Seen by Provider: 01/04/19 09:28 - HPI HPI: Room 37 The pt is a 23 y/o F p/w a cc of CP and AP. The pt states this am she developed ss CP and RUQ ap eescibed as sharp in nature. The pain is constant and worsens with meals. Pt c/o sl SOB but denies cough or fever. Pt denies pleurisy, n/v or diarrhea. Pt gives her pain a score of 7/10 ED Past Medical Hx - Past Medical History Previous Medical History?: Yes Hx Asthma: Yes Additional medical history: Bronchitis. Gall Stones - Surgical History Past Surgical History?: No - Family History Family history: no significant - Social History Smoking Status: Current Every Day Smoker (05/11 ppd) Substance Use Type: None (denies illicit drug use) - Medications Home Medications: Home Medications Medication Instructions Recorded Confirmed Last Taken Type Ondansetron [Zofran Odt] 4 mg PO Q8HR PRN #10 tab.rapdis 07/26/18 Unknown Rx Sulfamethoxazole/Trimethoprim 1 each PO BID #10 tablet 07/26/18 Unknown Rx [Bactrim DS TAB] traMADol [Ultram] 50 mg PO Q6HR PRN #12 tablet 11/13/18 Unknown Rx Nitrofurantoin [place]/M-Cryst 100 mg PO Q12HR #20 capsule 12/20/18 Unknown Rx [Macrobid CAP] Phenazopyridine [Pyridium] 200 mg PO TID #9 tab 12/20/18 Unknown Rx Dicyclomine [Bentyl] 20 mg PO QID #10 tablet 12/25/18 Unknown Rx Ondansetron [Zofran ODT TAB] 4 mg PO Q8HR #10 tab.rapdis 12/25/18 Unknown Rx Ciprofloxacin HCl [Ciprofloxacin 250 mg PO BID #6 tablet 01/04/19 Unknown Rx TAB] Dicyclomine [Bentyl] 20 mg PO QID #30 tablet 01/04/19 Unknown Rx traMADol [Ultram] 50 mg PO Q6HR PRN #14 tablet 01/04/19 Unknown Rx ED Review of Systems ROS: Stated complaint: CHEST PAIN/ABD PAIN Other details as noted in HPI Constitutional: denies: fever Eyes: denies: eye pain ENT: denies: throat pain Respiratory: shortness of breath. denies: cough Cardiovascular: chest pain Endocrine: no symptoms reported Gastrointestinal: abdominal pain. denies: nausea, vomiting, diarrhea Genitourinary: denies: dysuria Musculoskeletal: back pain Neurological: denies: headache Physical Exam - Physical Exam Vital Signs: Vital Signs 01/04/19 07:59 Temperature 98.7 F Pulse Rate 74 Respiratory 16 Rate Blood Pressure 115/64 O2 Sat by Pulse 100 Oximetry Physical Exam: Gen: WD, WN F lying on stretcher in NAD HEENT: NCAT, EOMI Neck: Trachea midline Pulm: CTA B CV: rrr no m/r/g Abd: S/ND +BS, mild discomfort to palpation in the LLQ, RLQ and RUQ. no rebound/guarding Skin: no diaphoresis Neuro: gcs 15 MS: no evidence of acute injury ED Course Vital Signs 01/04/19 07:59 Temperature 98.7 F Pulse Rate 74 Respiratory 16 Rate Blood Pressure 115/64 O2 Sat by Pulse 100 Oximetry ED Medical Decision Making - Lab Data Result diagrams: 01/04/19 08:15 01/04/19 08:15 Laboratory Tests 01/04/19 01/04/19 01/04/19 08:15 08:15 08:42 WBC 6.7 RBC 4.56 Hgb 12.0 Hct 36.8 MCV 81 MCH 26 L MCHC 33 RDW 16.1 H Plt Count 244 Lymph % (Auto) 24.6 [place] % (Auto) 6.4 Eos % (Auto) 3.1 Baso % (Auto) 0.6 Lymph # 1.6 [place] # 0.4 Eos # 0.2 Baso # 0.0 Seg Neutrophils % 65.3 Seg Neutrophils # 4.3 D-Dimer Sodium 139 Potassium 4.0 Chloride 104.7 Carbon Dioxide 26 Anion Gap 12 BUN 16 Creatinine 0.8 Estimated GFR > 60 BUN/Creatinine Ratio 20 Glucose 100 Calcium 8.8 Total Bilirubin < 0.20 AST 10 ALT 10 Alkaline Phosphatase 50 Total Creatine Kinase CK-MB (CK-2) CK-MB (CK-2) Rel Index Troponin T Total Protein 7.7 Albumin 3.5 L Albumin/Globulin Ratio 0.8 Urine Color Yellow Urine Turbidity Slightly-cloudy Urine pH 5.0 Ur Specific [place] 1.025 Urine Protein <15 mg/dl Urine Glucose (UA) Neg Urine Ketones Neg Urine Blood Neg Urine Nitrite Neg Urine Bilirubin Neg Urine Urobilinogen < 2.0 Ur Leukocyte Esterase Lg Urine WBC (Auto) 24.0 H Urine RBC (Auto) 8.0 U Epithel Cells (Auto) 10.0 Urine Bacteria (Auto) 2+ Urine Mucus 2+ Urine HCG, Qual Negative 01/04/19 01/04/19 09:41 10:36 WBC RBC Hgb Hct MCV MCH MCHC RDW Plt Count Lymph % (Auto) [place] % (Auto) Eos % (Auto) Baso % (Auto) Lymph # [place] # Eos # Baso # Seg Neutrophils % Seg Neutrophils # D-Dimer 151.82 Sodium Potassium Chloride Carbon Dioxide Anion Gap BUN Creatinine Estimated GFR BUN/Creatinine Ratio Glucose Calcium Total Bilirubin AST ALT Alkaline Phosphatase Total Creatine Kinase 89 CK-MB (CK-2) < 1.0 CK-MB (CK-2) Rel Index 1.1 Troponin T < 0.010 Total Protein Albumin Albumin/Globulin Ratio Urine Color Urine Turbidity Urine pH Ur Specific [place] Urine Protein Urine Glucose (UA) Urine Ketones Urine Blood Urine Nitrite Urine Bilirubin Urine Urobilinogen Ur Leukocyte Esterase Urine WBC (Auto) Urine RBC (Auto) U Epithel Cells (Auto) Urine Bacteria (Auto) Urine Mucus Urine HCG, Qual - EKG Data -: EKG Interpreted by Me EKG shows normal: sinus rhythm Rate: normal - EKG Data When compared to previous EKG there are: previous EKG unavailable Interpretation: nonspecific ST-T wave sammy (TWI lead 3, V2, V3) - Radiology Data Radiology results: report reviewed (chest x-ray, right upper quadrant ultrasound), image reviewed (CXR, right upper quadrant ultrasound) interpreted by me: CXR- no focal infilterates, no ptx [address] [address] Ultrasound Report Signed Patient: EMMANUEL ROSENBERG MR# : [id number] : 1995 Acct:[id number] Age/Sex: 23 / F ADM Date: 01/04/19 Loc: ED Attending Dr: Ordering Physician: RADHA ELAINE MD Date of Service: 01/04/19 Procedure(s): US abdomen limited Accession Number(s): [id number] cc: RADHA ELAINE MD ULTRASOUND ABDOMEN, LIMITED (RIGHT UPPER QUADRANT) INDICATION: RUQ pain. COMPARISON: Ultrasound dated 12/20/2018 FINDINGS: Pancreas: Visualized portion shows no significant abnormality. Liver: Normal. Gallbladder: Gallstones and sludge are noted in the lumen of the gallbladder. The gallbladder wall is normal in thickness. Patient is tender over the gallbladder. No pericholecystic fluid is seen. Bile ducts: Normal. Common Bile Duct measures 5 mm. Free fluid: None. Additional Findings: None. IMPRESSION: 1. There is cholelithiasis. There is sludge in the lumen of the gallbladder. The patient is tender over the gallbladder. No gallbladder wall thickening or pericholecystic fluid is seen. Signer Name: Marcellus Thomas MD Signed: 01/04/2019 11:36 AM Workstation Name: [id number] Transcribed By: Dictated By: Marcellus Thomas MD Electronically Authenticated By: Marcellus Thomas MD Signed Date/Time: 01/04/19 1136 DD/ 1134 TD/TT: [place] [address] XRay Report Signed Patient: EMMANUEL ROSENBERG MR# : [id number] : 1995 Acct:[id number] Age/Sex: 23 / F ADM Date: 01/04/19 Loc: ED Attending Dr: Ordering Physician: RADHA ELAINE MD Date of Service: 01/04/19 Procedure(s): XR chest 1V ap Accession Number(s): [id number] cc: RADHA ELAINE MD Fluoro Time In Minutes: CHEST 1 VIEW INDICATION / CLINICAL INFORMATION: Chest Pain. COMPARISON: 12/20/2017 FINDINGS: SUPPORT DEVICES: None. HEART / MEDIASTINUM: No significant abnormality. LUNGS / PLEURA: No significant pulmonary or pleural abnormality.. No pneumothorax. ADDITIONAL FINDINGS: No significant additional findings. IMPRESSION: 1. No acute findings. Signer Name: Marcellus Thomas MD Signed: 01/04/2019 10:08 AM Workstation Name: [id number] Transcribed By: SS Dictated By: Marcellus Thomas MD Electronically Authenticated By: Marcellus Thomas MD Signed Date/Time: 01/04/19 1008 DD/ 1008 TD/TT: - Differential Diagnosis symptomatic cholelithiasis, cholecystitis, pe, costochondritis Critical care attestation.: If time is entered above; I have spent that time in minutes in the direct care of this critically ill patient, excluding procedure time. ED Disposition Clinical Impression: Acute abdominal pain, UTI (urinary tract infection), Symptomatic cholelithiasis Disposition: TO HOME OR SELFCARE Is pt being admited?: No Does the pt Need Aspirin: No Condition: Stable Instructions: Abdominal Pain (ED) Additional Instructions: Return to the emergency department should you develop worsening symptoms, inability to tolerate food or liquids, high fever or any other concerns Prescriptions: Dicyclomine [Bentyl] 20 mg PO QID #30 tablet Ciprofloxacin HCl [Ciprofloxacin TAB] 250 mg PO BID #6 tablet traMADol [Ultram] 50 mg PO Q6HR PRN #14 tablet PRN Reason: Pain Referrals: ABILIO CARNES MD [Primary Care Provider] - 3-5 Days ALLY WHITE DO [Staff Physician] - 3-5 Days Time of Disposition: 11:53
--- NOTE | 2019-01-04 10:13 | XRay Report ---
CHEST 1 VIEW INDICATION / CLINICAL INFORMATION: Chest Pain. COMPARISON: 12/20/2017 FINDINGS: SUPPORT DEVICES: None. HEART / MEDIASTINUM: No significant abnormality. LUNGS / PLEURA: No significant pulmonary or pleural abnormality.. No pneumothorax. ADDITIONAL FINDINGS: No significant additional findings. IMPRESSION: 1. No acute findings. Signer Name: Marcellus Thomas MD Signed: 01/04/2019 10:08 AM Workstation Name: [id number]
[2019-01-04 11:07] LABS: Creatine Kinase MB < 1.0 ng/mL (0.0-4.0)
--- NOTE | 2019-01-04 11:40 | Ultrasound Report ---
ULTRASOUND ABDOMEN, LIMITED (RIGHT UPPER QUADRANT) INDICATION: RUQ pain. COMPARISON: Ultrasound dated 12/20/2018 FINDINGS: Pancreas: Visualized portion shows no significant abnormality. Liver: Normal. Gallbladder: Gallstones and sludge are noted in the lumen of the gallbladder. The gallbladder wall is normal in thickness. Patient is tender over the gallbladder. No pericholecystic fluid is seen. Bile ducts: Normal. Common Bile Duct measures 5 mm. Free fluid: None. Additional Findings: None. IMPRESSION: 1. There is cholelithiasis. There is sludge in the lumen of the gallbladder. The patient is tender ov er the gallbladder. No gallbladder wall thickening or pericholecystic fluid is seen. Signer Name: Marcellus Thomas MD Signed: 01/04/2019 11:36 AM Workstation Name: [id number]
[2019-01-04 12:06] VITALS: BP 118/68
== END 2019-01-04 12:05 | disposition home or self-care (01) ==
LOC: ED 07:50
DX: N39.0 Urinary tract infection, site not specified (principal); K80.80 Other cholelithiasis without obstruction; J45.909 Unspecified asthma, uncomplicated; F17.210 Nicotine dependence, cigarettes, uncomplicated; Z79.899 Other long term (current) drug therapy; Z91.018 Allergy to other foods
CPT/HCPCS: 36415; 71045; 76705; 80053; 81001; 81025; 82550; 82553; 84484; 85025; 85379; 87086; 93005; 93010; 96372; 99284; J0500; J2405; J3010

== ENCOUNTER 2019-03-02 07:18 | Emergency (ER) | payer SELFPAY ==
[2019-03-02 07:25] VITALS: BP 107/58
[2019-03-02] MEDS ORDERED: ONDANSETRON 4 MG/2 ML INJ IV ONE (07:37)
[2019-03-02] MEDS ORDERED: SODIUM CHLORIDE 0.9% 1000 ML 1,000 ML IV ONE (07:37)
[2019-03-02] MEDS ORDERED: KETOROLAC 30 MG/1 ML INJ IV ONE (07:37)
--- NOTE | 2019-03-02 07:40 | Emergency Department Report ---
ED Abdominal Pain HPI - General Chief Complaint: Abdominal Pain Stated Complaint: ABDOMINAL PAIN Time Seen by Provider: 03/02/19 07:29 Source: patient Mode of arrival: Ambulatory Limitations: No Limitations - History of Present Illness Initial Comments: Patient is a 23-year-old female presents emergency room with complaints of upper abdominal pain that began last night. She has associated intermittent nausea and vomiting. She states she has also had constipation for the last 2 days. She denies any fever, chills, diarrhea, urinary symptoms, vaginal discharge. She states she has irregular cycles and her last menstrual cycle was in December. she denies any allergies to medications. past medical history of asthma and cholelithiasis. She has not followed up with GI or Gen. surgery regarding her frequent abdominal discomfort. - Related Data Previous Rx's Medication Instructions Recorded Last Taken Type Ondansetron [Zofran Odt] 4 mg PO Q8HR PRN #10 tab.rapdis 07/26/18 Unknown Rx Sulfamethoxazole/Trimethoprim 1 each PO BID #10 tablet 07/26/18 Unknown Rx [Bactrim DS TAB] traMADol [Ultram] 50 mg PO Q6HR PRN #12 tablet 11/13/18 Unknown Rx Nitrofurantoin [place]/M-Cryst 100 mg PO Q12HR #20 capsule 12/20/18 Unknown Rx [Macrobid CAP] Phenazopyridine [Pyridium] 200 mg PO TID #9 tab 12/20/18 Unknown Rx Dicyclomine [Bentyl] 20 mg PO QID #10 tablet 12/25/18 Unknown Rx Ondansetron [Zofran ODT TAB] 4 mg PO Q8HR #10 tab.rapdis 12/25/18 Unknown Rx Ciprofloxacin HCl [Ciprofloxacin 250 mg PO BID #6 tablet 01/04/19 Unknown Rx TAB] Dicyclomine [Bentyl] 20 mg PO QID #30 tablet 01/04/19 Unknown Rx traMADol [Ultram] 50 mg PO Q6HR PRN #14 tablet 01/04/19 Unknown Rx Ondansetron [Zofran Odt] 4 mg PO Q8HR PRN #10 tab.rapdis 03/02/19 Unknown Rx Phenazopyridine [Pyridium] 200 mg PO BID PRN #9 tab 03/02/19 Unknown Rx cephALEXin [Keflex] 500 mg PO BID 7 Days #14 capsule 03/02/19 Unknown Rx Allergies Allergy/AdvReac Type Severity Reaction Status Date / Time coconut Allergy Rash Verified 12/25/18 07:05 ED Review of Systems ROS: Stated complaint: ABDOMINAL PAIN Other details as noted in HPI Comment: All other systems reviewed and negative ED Past Medical Hx - Past Medical History Previous Medical History?: Yes Hx Asthma: Yes Additional medical history: Bronchitis. Gall Stones - Surgical History Past Surgical History?: No - Social History Smoking Status: Former Smoker Substance Use Type: Other - Medications Home Medications: Home Medications Medication Instructions Recorded Confirmed Last Taken Type Ondansetron [Zofran Odt] 4 mg PO Q8HR PRN #10 tab.rapdis 07/26/18 Unknown Rx Sulfamethoxazole/Trimethoprim 1 each PO BID #10 tablet 07/26/18 Unknown Rx [Bactrim DS TAB] traMADol [Ultram] 50 mg PO Q6HR PRN #12 tablet 11/13/18 Unknown Rx Nitrofurantoin [place]/M-Cryst 100 mg PO Q12HR #20 capsule 12/20/18 Unknown Rx [Macrobid CAP] Phenazopyridine [Pyridium] 200 mg PO TID #9 tab 12/20/18 Unknown Rx Dicyclomine [Bentyl] 20 mg PO QID #10 tablet 12/25/18 Unknown Rx Ondansetron [Zofran ODT TAB] 4 mg PO Q8HR #10 tab.rapdis 12/25/18 Unknown Rx Ciprofloxacin HCl [Ciprofloxacin 250 mg PO BID #6 tablet 01/04/19 Unknown Rx TAB] Dicyclomine [Bentyl] 20 mg PO QID #30 tablet 01/04/19 Unknown Rx traMADol [Ultram] 50 mg PO Q6HR PRN #14 tablet 01/04/19 Unknown Rx Ondansetron [Zofran Odt] 4 mg PO Q8HR PRN #10 tab.rapdis 03/02/19 Unknown Rx Phenazopyridine [Pyridium] 200 mg PO BID PRN #9 tab 03/02/19 Unknown Rx cephALEXin [Keflex] 500 mg PO BID 7 Days #14 capsule 03/02/19 Unknown Rx ED Physical Exam - General Limitations: No Limitations General appearance: alert, in no apparent distress - Head Head exam: Present: atraumatic, normocephalic - Eye Eye exam: Present: normal appearance - ENT ENT exam: Present: mucous membranes moist - Respiratory Respiratory exam: Present: normal lung sounds bilaterally. Absent: respiratory distress, wheezes, rales, rhonchi, stridor, chest wall tenderness, accessory muscle use, decreased breath sounds, prolonged expiratory - Cardiovascular Cardiovascular Exam: Present: regular rate, normal rhythm, normal heart sounds. Absent: systolic murmur, diastolic murmur, rubs, gallop - GI/Abdominal GI/Abdominal exam: Present: soft, tenderness (RUQ, epigastric), normal bowel sounds. Absent: distended, guarding, rebound, rigid - Neurological Exam Neurological exam: Present: alert, oriented X3 - Psychiatric Psychiatric exam: Present: normal affect, normal mood - Skin Skin exam: Present: warm, dry, intact ED Course Vital Signs 03/02/19 07:20 Temperature 98.4 F Pulse Rate 70 Respiratory 18 Rate Blood Pressure 107/58 O2 Sat by Pulse 100 Oximetry ED Medical Decision Making - Lab Data Result diagrams: 03/02/19 07:29 03/02/19 07:29 - Radiology Data Radiology results: report reviewed LIMITED RUQ ABDOMINAL ULTRASOUND INDICATION: epigastric/RUQ pain. COMPARISON: Abdominal ultrasound from 01/04/2019. FINDINGS: Pancreas: Visualized portions show no significant abnormality. Abdominal Aorta: No significant abnormality. IVC: No significant abnormality. Liver: The liver measures 15.9 cm in length. No significant abnormality. Normal hepatopedal blood flow in the main portal vein. Gallbladder: There is cholelithiasis with largest stone measuring 1.6 cm. There was a positive sonographic Myers sign. No gross wall thickening identified. No pericholecystic fluid.. Bile ducts: No significant abnormality. Common bile duct measures 3 mm. Right kidney: No significant abnormality visualized.. Free fluid: None. Additional Findings: None. IMPRESSION: 1. Cholelithiasis with reported positive sonographic Myers sign although there is no gallbladder wall thickening or pericholecystic fluid. The patient demonstrated similar findings on the previous ultrasound. Signer Name: Jacob Pa MD Signed: 03/02/2019 8:38 AM Workstation Name: [id number] Transcribed By: KG Dictated By: Jacob Pa MD Electronically Authenticated By: Jacob Pa MD Signed Date/Time: 03/02/19 0838 - Medical Decision Making Patient is a 23-year-old female presents emergency room with complaints of upper abdominal pain that began last night. She has associated intermittent nausea and vomiting. She states she has also had constipation for the last 2 days. She denies any fever, chills, diarrhea, urinary symptoms, vaginal discharge. She states she has irregular cycles and her last menstrual cycle was in December. she denies any allergies to medications. past medical history of asthma and cholelithiasis. She has not followed up with GI or Gen. surgery regarding her frequent abdominal discomfort. vitals are normal. on exam: epigastric and RUQ TTP, no guarding, no rebound, no peritoneal signs. labs are normal. UA shows evidence of UTI. US RUQ: 1. Cholelithiasis with reported positive sonographic Myers sign although there is no gallbladder wall thickening or pericholecystic fluid. The patient demonstrated similar findings on the previous ultrasound. no signs of obstruction or cholecystitis, no leukocytosis, afebrile. Patient given pain medication and nausea medication and symptoms improved. Patient was able to tolerate by mouth intake while in the emergency department. Patient given 1 g of ceftriaxone for UTI. Also given prescriptions for Zofran, Keflex, Pyridium. advised pt to please take medication as prescribed. Please follow-up with a primary care doctor and a general surgeon in the next 2-3 days. Return to the emergency room for any new or worsening symptoms. discussed with pt the importance of her following up with a general surgeon due to the fact she has frequent bouts of abdominal discomfort. - Differential Diagnosis cholecystitis, cholelithiasis, biliary obstruction, UTI, GERD/PUD, pancreat Critical care attestation.: If time is entered above; I have spent that time in minutes in the direct care of this critically ill patient, excluding procedure time. ED Disposition Clinical Impression: Abdominal pain Qualifiers: Abdominal location: right upper quadrant Qualified Code(s): R10.11 - Right upper quadrant pain UTI (urinary tract infection) Qualifiers: Urinary tract infection type: acute cystitis Hematuria presence: with hematuria Qualified Code(s): N30.01 - Acute cystitis with hematuria Cholelithiasis Qualifiers: Cholelithiasis location: gallbladder Cholecystitis presence: without cholecystitis Biliary obstruction: without biliary obstruction Qualified Code(s): K80.20 - Calculus of gallbladder without cholecystitis without obst ruction Disposition: DC-01 TO HOME OR SELFCARE Is pt being admited?: No Does the pt Need Aspirin: No Condition: Stable Instructions: Cholelithiasis (ED), Urinary Tract Infection in Women (ED), Abdominal Pain (ED) Additional Instructions: Please take medication as prescribed. Please follow-up with a primary care doctor in a general surgeon in the next 2-3 days. Return to the emergency room for any new or worsening symptoms. Prescriptions: cephALEXin [Keflex] 500 mg PO BID 7 Days #14 capsule Phenazopyridine [Pyridium] 200 mg PO BID PRN #9 tab PRN Reason: pain Ondansetron [Zofran Odt] 4 mg PO Q8HR PRN #10 tab.rapdis PRN Reason: Nausea And Vomiting Referrals: WOO MERCEDES MD [Staff Physician] - 2-3 Days ALLY WHITE DO [Staff Physician] - 2-3 Days [facility] [Provider Group] - 2-3 Days Time of Disposition: 09:00 Print Language: KAZAKH
[2019-03-02 07:50] LABS: Basophils % (Auto) 0.6 % (0.0-1.8); Eosinophils # (Auto) 0.3 K/mm3 (0.0-0.4); Eosinophils % (Auto) 5.1 % (0.0-4.3); Hematocrit 36.9 % (30.3-42.9); Lymphocytes # (Auto) 1.7 K/mm3 (1.2-5.4); Lymphocytes % (Auto) 25.3 % (13.4-35.0); Mean Corpuscular HGB Conc 33 % (30-34); Mean Corpuscular Volume 80 fl (79-97); Monocytes # (Auto) 0.5 K/mm3 (0.0-0.8); Platelet Count 239 K/mm3 (140-440); Red Blood Count 4.61 M/mm3 (3.65-5.03); Red Cell Distribution Width 15.9 % (13.2-15.2)
[2019-03-02 08:10] LABS: Bacteria,Urine 2+ /HPF (Negative); Bilirubin,Urine NEG (Negative); Blood,Urine LG (Negative); Color,Urine Yellow (Yellow); Mucus,Urine FEW /HPF; Protein,Urine <15 mg/dL mg/dL (Negative); Urobilinogen,Urine < 2.0 mg/dL (<2.0)
[2019-03-02 08:11] LABS: Alanine Aminotransferase 13 units/L (7-56); Albumin 3.7 g/dL (3.9-5); BUN/Creatinine Ratio 16; Blood Urea Nitrogen 11 mg/dL (7-17); Calcium 9.3 mg/dL (8.4-10.2); Hemolysis Index 7
--- NOTE | 2019-03-02 08:42 | Ultrasound Report ---
LIMITED RUQ ABDOMINAL ULTRASOUND INDICATION: epigastric/RUQ pain. COMPARISON: Abdominal ultrasound from 01/04/2019. FINDINGS: Pancreas: Visualized portions show no significant abnormality. Abdominal Aorta: No significant abnormality. IVC: No significant abnormality. Liver: The liver measures 15.9 cm in length. No significant abnormality. Normal hepatopedal blood fl ow in the main portal vein. Gallbladder: There is cholelithiasis with largest stone measuring 1.6 cm. There was a positive sonogr aphic Myers sign. No gross wall thickening identified. No pericholecystic fluid.. Bile ducts: No significant abnormality. Common bile duct measures 3 mm. Right kidney: No significant abnormality visualized.. Free fluid: None. Additional Findings: None. IMPRESSION: 1. Cholelithiasis with reported positive sonographic Myers sign although there is no gallbladder wal l thickening or pericholecystic fluid. The patient demonstrated similar findings on the previous ultr asound. Signer Name: Jacob Pa MD Signed: 03/02/2019 8:38 AM Workstation Name: [id number]
[2019-03-02] MEDS ORDERED: cefTRIAXone/NS 1 GM/50 ML 1 GM/50 ML BAG IV ONE (08:46)
== END 2019-03-02 09:25 | disposition home or self-care (01) ==
LOC: ED 07:18
DX: N39.0 Urinary tract infection, site not specified (principal); K80.20 Calculus of gallbladder without cholecystitis without obstruction; J45.909 Unspecified asthma, uncomplicated
CPT/HCPCS: 36415; 76705; 80053; 81001; 83690; 84702; 85025; 87086; 96361; 96365; 96375; 99284; J0696; J1885; J2405; J7030

== ENCOUNTER 2020-02-02 11:47 | Emergency (ER) | payer SELFPAY ==
[2020-02-02 11:56] VITALS: BP 139/89
[2020-02-02] MEDS ORDERED: IBUPROFEN 600 MG TAB PO ONE (12:10)
[2020-02-02] MEDS ORDERED: predniSONE 20 MG TAB PO ONE (12:11)
[2020-02-02] MEDS ORDERED: ALBUTEROL 2.5 MG/3 ML NEBU IH ONE (12:11)
--- NOTE | 2020-02-02 12:20 | Emergency Department Report ---
Minor Respiratory - HPI Chief Complaint: Upper Respiratory Infection Stated Complaint: SORE THROAT/CP/BACK PAIN/SOB Time Seen by Provider: 02/02/20 12:09 Duration: 1 Day Minor Respiratory: Yes Rhinorrhea, Yes Sore Throat, Yes Cough, Yes Fever, No Chest Pain Other History: 24-year-old -[place] female presents to the emergency room for sore throat, chest congestion for 2 days. Patient admits to nausea but no vomiting headache but no abdominal pain. She states her headache is located in the temporal area. Patient states she has had a cough for 1 day has been taken Tylenol for her fever T-max of 100.8. Last dose was 9 AM. Patient states that she took some cold and flu medication yesterday. She she admits to nasal congestion but denies any sick contact and no primary care provider. She states her last menstrual period was 01/14/2020. ED Review of Systems ROS: Stated complaint: SORE THROAT/CP/BACK PAIN/SOB Other details as noted in HPI ED Past Medical Hx - Past Medical History Previous Medical History?: Yes Hx Asthma: Yes Additional medical history: Bronchitis. Gall Stones - Surgical History Past Surgical History?: No - Social History Smoking Status: Former Smoker Substance Use Type: Alcohol - Medications Home Medications: Home Medications Medication Instructions Recorded Confirmed Last Taken Type Ondansetron [Zofran Odt] 4 mg PO Q8HR PRN #10 tab.rapdis 07/26/18 Unknown Rx Sulfamethoxazole/Trimethoprim 1 each PO BID #10 tablet 07/26/18 Unknown Rx [Bactrim DS TAB] traMADoL [Ultram] 50 mg PO Q6HR PRN #12 tablet 11/13/18 Unknown Rx Nitrofurantoin [place]/M-Cryst 100 mg PO Q12HR #20 capsule 12/20/18 Unknown Rx [Macrobid CAP] Phenazopyridine [Pyridium] 200 mg PO TID #9 tab 12/20/18 Unknown Rx Dicyclomine [Bentyl] 20 mg PO QID #10 tablet 12/25/18 Unknown Rx Ondansetron [Zofran ODT TAB] 4 mg PO Q8HR #10 tab.rapdis 12/25/18 Unknown Rx Ciprofloxacin HCl [Ciprofloxacin 250 mg PO BID #6 tablet 01/04/19 Unknown Rx TAB] Dicyclomine [Bentyl] 20 mg PO QID #30 tablet 01/04/19 Unknown Rx traMADoL [Ultram] 50 mg PO Q6HR PRN #14 tablet 01/04/19 Unknown Rx Ondansetron [Zofran Odt] 4 mg PO Q8HR PRN #10 tab.rapdis 03/02/19 Unknown Rx Phenazopyridine [Pyridium] 200 mg PO BID PRN #9 tab 03/02/19 Unknown Rx cephALEXin [Keflex] 500 mg PO BID 7 Days #14 capsule 03/02/19 Unknown Rx Albuterol Sulfate [Proventil Hfa] 2 puff IH QID PRN #1 hfa.aer.ad 02/02/20 Unknown Rx Azithromycin [Zithromax] 250 mg PO QDAY #6 tablet 02/02/20 Unknown Rx predniSONE [Deltasone] 40 mg PO QDAY 5 Days #10 tab 02/02/20 Unknown Rx Minor Respiratory Exam - Exam General: Vital signs noted. No distress. Alert and acting appropriately. HEENT: Yes Moist Mucous Membranes, No Pharyngeal Erythema, No Pharyngeal Exudates, No Rhinorrhea, No Conjuctival Injection, No Frontal Tenderness, No Maxillary Tenderness Neck: Yes Supple, No Adenopathy Lungs: Yes Ronchi, Yes Cough, No Wheezes, No Labored Respirations, No Retractions, No Use of Accessory Muscles, No Other Abnormal Lung Sounds Heart: No Regular (Tachycardic) Abdomen: Yes Normal Bowel Sounds, No Tenderness, No Peritoneal Signs Skin: No Rash, No Edema Neurologic: Alert and oriented, no deficits. Musculoskeletal: Unremarkable. ED Course Vital Signs 02/02/20 11:54 Temperature 97.8 F Pulse Rate 124 H Respiratory 20 Rate Blood Pressure 139/89 O2 Sat by Pulse 98 Oximetry ED Medical Decision Making - Radiology Data Radiology results: report reviewed Ordering Physician: THELMA BARNETT Date of Service: 02/02/20 Procedure(s): XR chest routine 2V Accession Number(s): [id number] cc: THELMA BARNETT Fluoro Time In Minutes: CHEST 2 VIEWS 1235 INDICATION / CLINICAL INFORMATION: sob,cough and rales COMPARISON: 01/04/2019 FINDINGS: SUPPORT DEVICES: None. HEART / MEDIASTINUM: No significant abnormality. LUNGS / PLEURA: No significant pulmonary or pleural abnormality. No pneumothorax. ADDITIONAL FINDINGS: No significant additional findings. IMPRESSION: No significant acute abnormality Signer Name: Mikael Rodriguez MD Signed: 02/02/2020 12:57 PM Workstation Name: [id number] Transcribed By: GJ Dictated By: Mikael Rodriguez MD Electronically Authenticated By: Mikael Rodriguez MD Signed Date/Time: 02/02/20 1257 DD/ 1256 TD/TT: - Medical Decision Making 24-year-old -[place] female presents to the emergency room for sore throat, chest congestion for 2 days. Patient admits to nausea but no vomiting headache but no abdominal pain. She states her headache is located in the temporal area. Patient states she has had a cough for 1 day has been taken Tylenol for her fever T-max of 100.8. Last dose was 9 AM. Patient states that she took some cold and flu medication yesterday. She she admits to nasal congestion but denies any sick contact and no primary care provider. She states her last menstrual period was 01/14/2020. Chest x-ray is been ordered, ibuprofen for for pain management has been ordered. Albuterol Atrovent prednisone has been ordered. Chest x-ray is negative for any pneumonia. Patient be treated with azithromycin since she has had chest congestion with fever. Encourage patient to go get tested for COVID. Critical care attestation.: If time is entered above; I have spent that time in minutes in the direct care of this critically ill patient, excluding procedure time. ED Disposition Clinical Impression: Chest congestion, Sore throat Disposition: DC-01 TO HOME OR SELFCARE Is pt being admited?: No Does the pt Need Aspirin: No Condition: Stable Instructions: Upper Respiratory Infection (ED) Additional Instructions: Complete medications as prescribed. Take [id number] Robitussin for cough. Follow-up with your primary care provider if symptoms persist. Chest x-ray was negative for any pneumonia. Prescriptions: predniSONE [Deltasone] 40 mg PO QDAY 5 Days #10 tab Albuterol Sulfate [Proventil Hfa] 2 puff IH QID PRN #1 hfa.aer.ad PRN Reason: Shortness Of Breath Azithromycin [Zithromax] 250 mg PO QDAY #6 tablet Referrals: EMERSON ANDERSON MD [Staff Physician] - 3-5 Days [facility] [Provider Group] - 3-5 Days
--- NOTE | 2020-02-02 13:01 | XRay Report ---
CHEST 2 VIEWS 1235 INDICATION / CLINICAL INFORMATION: sob,cough and rales COMPARISON: 01/04/2019 FINDINGS: SUPPORT DEVICES: None. HEART / MEDIASTINUM: No significant abnormality. LUNGS / PLEURA: No significant pulmonary or pleural abnormality. No pneumothorax. ADDITIONAL FINDINGS: No significant additional findings. IMPRESSION: No significant acute abnormality Signer Name: Mikael Rodriguez MD Signed: 02/02/2020 12:57 PM Workstation Name: [id number]
== END 2020-02-02 14:07 | disposition home or self-care (01) ==
LOC: ED 11:47
DX: J02.9 Acute pharyngitis, unspecified (principal); R09.89 Other specified symptoms and signs involving the circulatory and respiratory systems; R06.02 Shortness of breath; J45.909 Unspecified asthma, uncomplicated; Z91.018 Allergy to other foods; Z87.891 Personal history of nicotine dependence; Z79.899 Other long term (current) drug therapy
CPT/HCPCS: 71046; 94640; 99283; J7512; 94644

== ENCOUNTER 2021-09-29 20:55 | Emergency (ER) | payer MEDICAID | END 2021-09-29 21:00 | disposition left against medical advice (07) | LOC: ED 20:55 | DX: J02.9 Acute pharyngitis, unspecified (principal); R52 Pain, unspecified; Z53.21 Procedure and treatment not carried out due to patient leaving prior to being seen by health care provider ==